=== PATIENT | male | born 1935 | race Caucasian/White ===

== ENCOUNTER 2017-12-22 19:18 | Inpatient (IN) | payer MEDICARE, OTHER ==
--- NOTE | ~2017-12-22 | HEMODYNAMI ---
PATIENT:JAKE WELLS MEDICAL RECORD: [id number] : 33 [id number] ADMISSION DATE: 12/22/17 Generatedon:12/27/20178:04 Patient name: JAKE WELLS Patient #: [id number] SSN: : 1935 Date of study: 12/27/2017 Page: Of Hemodynamic Procedure Report Patient Data Patient Demographics Procedure consent was obtained First Name: JAKE Gender: Male Last Name: RUSSELL : 1935 Patient #: [id number] Age: 82 year(s) Race: Unknown Additional ID: [id number] Contact details [address]: [address] [place] [address] [address] State: [place] City: [place] Zip code: [address] Past Medical History Allergies: No known allergies Admission Admission Data Admission Date: 12/22/2017 Admission Time: 20:11 Admit Source: Other Room #: D.2122 Height (in.): 66.93 BSA: 2.03 (m2) Height (cm.): 170 BMI: 31.83 (kg/m2) Weight (lbs.): 202.83 Weight (kg.): 92 Lab Results Lab Result Date: 12/27/2017 Lab Result Time: 0:00 Biochemistry Name Units Result Min Max BUN mg/dl 25 --(----)-* 7 18 Creatinine mg/dl 1.5 --(----)-* 0.6 1.3 CBC Name Units Result Min Max Hemoglobin g/dl 10.7 *-(----)-- 13.5 17.5 Procedure Procedure Types Cath Procedure PCI Procedure Coronary Stent AMI/SVG/TRACK LAMINATING MACHINE TENDER PTCA or Stent SVG-BMS/EMMY Initial Procedure Description Procedure Date Procedure Date: 12/27/2017 Procedure Start Time: 7:42 Procedure End Time: 8:03 Procedure Staff Name Function Angel Arthur MD Performing Physician Tsering Chan RT Monitor Abdoul Woods RT Joshua Beltran RN Nurse Procedure Data Cath Procedure Fluoroscopy Diagnostic fluoroscopy Total fluoroscopy Time: 3 time: 3 min min Diagnostic fluoroscopy Total fluoroscopy dose: 199 dose: 199 mGy mGy Contrast Material Contrast Material Type Amount (ml) Isovue 370 38 Entry Location Entry Primary Successful Side Size Upsize Upsize Entry Closure Succes sful Closure Location (Fr) 1 (Fr) 2 (Fr) Remarks Device Remarks Femoral Right 6 Fr Exoseal artery Short Estimated blood loss: 10 ml Procedure Complications No complications Procedure Medications Medication Administration Route Dosage Oxygen NC 2 l/min Lidocaine 2% added to field 20 Heparin Flush Bag added to field 2 bags (1000units/500ml NS) 0.9% NaCl I.V. 100 ml/hr Versed I.V. 1 mg Fentanyl I.V. 50 mcg Heparin Bolus I.V. 9000 units Plavix P.O. 600 mg Hemodynamics Rest BSA: 2.03 (m2) HGB: 10.7 (g/dl) O2 Consumption: Estimated: 253.25 (ml/min) O2 Co nsumption indexed: Estimated:124.75 (ml/min/m) Heart Rate: 99 (bpm) Snapshots Pre Cath Intra NCS Post Cath Vital Signs Time Heart Resp SPO2 etCO2 NIBP (mmHg) Rhythm Pain Sedation Rate (ipm) (%) (mmHg) Status Level (bpm) 7:32:23 98 22 95 4.5 154/92(126) NSR 0 (11) 10(A) , No pain 7:37:16 94 18 92 2.2 144/80(116) NSR 0 (11) 10(A) , No pain 7:42:09 93 15 94 1.5 132/73(104) NSR 0 (11) 9(A) , No pain 7:46:56 85 15 93 0.7 137/74(107) NSR 0 (11) 9(A) , No pain 7:51:41 86 17 95 0.7 128/64(90) NSR 0 (11) 9(A) , No pain 7:56:26 80 16 93 0.7 128/64(99) NSR 0 (11) 10(A) , No pain 8:01:14 81 13 96 23.3 133/71(111) NSR 0 (11) 9(A) , No pain Medications Time Medication Route Dose Verified Delivered Reason Notes Effectiveness by by 7:36:58 Oxygen NC 2 Angel Buffie used for l/min Jerson Beltran RN procedure 7:37:06 Lidocaine 2% added 20ml Angel Angel for local to vial Jerson Arthur MD anesthetic field 7:37:12 Heparin Flush added 2 Angel Angel used for Bag to bags Jerson Arthur MD procedure (1000units/500ml field NS) 7:37:21 0.9% NaCl I.V. 100 Angel Buffie Per physician ml/hr Jerson Beltran RN 7:38:28 Versed I.V. 1 mg Angel Buffie for sedation Jerson Beltran RN 7:38:33 Fentanyl I.V. 50 Angel Buffie for sedation mcg Jerson Beltran RN 7:46:33 Heparin Bolus I.V. 9000 Angel Buffie for verifie d units Jerson Beltran RN anticoagulation with dr arthur 7:58:11 Plavix P.O. 600 Angel Buffie for mg Jerson Beltran RN antiplatelet therapy Procedure Log Time Note 7:03:38 Patient Height : 66.93 inches 7:03:38 Patient Weight : 202.83 lbs 7:05:58 Signed procedure consent form obtained from patient. 7:05:59 Time tracking: Regular hours (M-F 7:00 - 5:00) 7:06:03 Plan of Care:Hemodynamics will remain stable., Cardiac rhythm will remain stable., Comfort level will be maintained., Respiratory function will remain adequate., Patient/ family verbilizes understanding of procedure., Procedure tolerated without complication., Recovers from procedure without complications.. 7:06:12 H&P Date Dictated: 12/22/2017 Within 30 days and on chart.. 7:06:25 Patient allergic to No known allergies 7:06:59 Lab Result : Creatinine 1.5 mg/dl 7:06:59 Lab Result : BUN 25 mg/dl 7:06:59 Lab Result : Hemoglobin 10.7 g/dl 7:10:00 Tsering Chan RT(R) sent for patient. Start room use. 7:31:13 Patient received from PCU to CCL 1 Alert and oriented. Tansferred to table in Supine position. 7:31:15 Warm blankets applied, and lo hugger turned on for patient comfort. 7:31:15 Correct patient and procedure confirmed by team. 7:31:16 ECG and BP/O2 sat monitors applied to patient. 7:31:17 Vital chart was started 7::22 Baseline sample Acquired. 7::42 Rhythm: sinus rhythm 7::43 Full Disclosure recording started 7::44 Pre-procedure instructions explained to patient. 7::44 Pre-op teaching completed and patient verbalized understanding. 7:31:46 Family in patients room. 7:31:48 Patient NPO since Midnight. 7:31:52 Is the patient allergic to Iodine/contrast media? No. 7:31:54 Is patient on blood thinner?No 7:31:55 Patient diabetic? Yes. 7:31:57 If diabetic: On Metformin? Yes 7:32:17 HAS NOT HAD METFORMIN WHILE IN HOSPITAL 7:32:27 Previous problem with sedation/anesthesia? No ? 7:32:28 Snore? No 7:32:29 Sleep apnea? No 7:32:31 Deviated septum? No 7:32:31 Opens mouth fully? Yes 7:32:33 Sticks out tongue? Yes 7:32:34 Airway obstruction? No ? 7:32:36 Dentures? No ? 7:34:43 Pre procedure: right dorsailis pedis pulse 2+ Normal; easily identifiable; not easily obliterated 7:34:46 Patient pain scale 0/10 ?. 7:34:50 IV patent on arrival in right hand with 0.9% NaCl at O. 7:35:31 Lab results completed and on chart. 7:35:35 Right groin area was prepped with chlora-prep and draped in sterile fashion 7:35:36 Alarms reviewed by R. N. 7:35:37 Sharps counted by scrub and verified by R.N. 7:35:38 --------ALL STOP TIME OUT------ 7:35:38 Final Timeout: patient, procedure, and site verified with staff and physician. All members of the team are in agreement. 7:35:40 Right groin site verified by team. 7:35:43 Physical assessment completed. ASA score P 2 - A patient with mild systemic disease as per Angel Arthur MD. 7:35:46 Sedation plan: IV Moderate Sedation Medication:Versed, Fentanyl 7:35:52 Use device set CATH PACK 7:35:53 ACIST Syringe (57922) opened to sterile field. 7:35:53 ACIST Hand Control (12533) opened to sterile field. 7:35:54 ACIST Manifold (69404) opened to sterile field. 7:35:54 Medline Cath Pack ([id number]) opened to sterile field. 7:35:55 Bag Decanter (2002S) opened to sterile field. 7:35:55 DIAGNOSTIC WIRE .035 260cm J wire (589242) opened to sterile field. 7:36:00 INFLATOR Merit BasixCompak (PF9377) opened to sterile field. 7:36:15 SHEATH Prelude 6Fr 0.035 ([id number]-7B-62-035) opened to sterile field. 7:36:26 Use device set ARTHUR PCI 7:36:28 TUBING High Pressure Extension Tubing (Arthur) ([id number]) opened to sterile field. 7:36:29 INFLATOR Merit BasixCompak (XW7190) opened to sterile field. 7:36:30 BMW 300cm Lockport 2 J wire ([id number]) opened to sterile field. 7:36:32 SHEATH Prelude 6Fr 0.035 (EVO-8T-04-035) opened to sterile field. 7:36:58 Oxygen 2 l/min NC was administered by Ernesto Beltran RN; used for procedure; 7:37:06 Lidocaine 2% 20ml vial added to field was administered by Angel Arthur MD; for local anesthetic; 7:37:12 Heparin Flush Bag (1000units/500ml NS) 2 bags added to field was administered by Angel Arthur MD; used for procedure; 7:37:21 0.9% NaCl 100 ml/hr I.V. was administered by Ernesto Beltran RN; Per physician; 7:38:28 Versed 1 mg I.V. was administered by Ernesto Beltran RN; for sedation; 7:38:33 Fentanyl 50 mcg I.V. was administered by Ernesto Beltran RN; for sedation; 7:42:03 Zero performed for pressure channel P1 7:42:09 Procedure started. 7:42:13 Local anesthetic to right femoral artery with Lidocaine 1% by Angel Arthur MD.INITIAL ACCESS ONLY 7:43:18 A 6 Fr Short sheath was inserted into the Right Femoral artery 7:43:33 GUIDE 6FR AR 2.0 catheter ([id number]) opened to sterile field. 7:44:08 6 Fr AR 2 guide catheter was inserted over the wire 7:46:33 Heparin Bolus 9000 units I.V. was administered by Ernesto Beltran RN; for anticoagulation; verified with dr arthur 7:46:39 BMW 300 wire advanced. 7:47:58 Wire advanced across lesion. 7:50:27 Place stent Inflation Number: 1 A INTEGRITY OTW 3.0 X 26 stent ([id number]) was prepped and advanced across the Aorta Right -> R PDA. The stent was deployed at 12 STEFANY for 0:10 (min:sec). 7:50:58 Stent catheter was removed intact over wire. 7:50:59 Wire removed. 7:50:59 Guide catheter removed. 7:51:03 EXOSEAL 6Fr (EX600) opened to sterile field. 7:51:36 Sheath removed intact; hemostasis achieved with Exoseal to the Right Femoral artery. 7:52:32 Procedure ended.(Physican Out) 7:53:49 Fluoroscopy time 03.00 minutes. 7:53:52 Fluoroscopy dose: 199 mGy 7:53:52 Flurop Dose total: 199 7:55:28 Sharps counted by scrub and verified by R.N. 7:55:32 Post-op/insertion site Right Femoral artery dressed using a 4 x 4 and Tegaderm. 7:55:35 Post right femoral artery:stable, soft, clean and dry 7:55:39 Post procedure: right dorsailis pedis pulse 2+ Normal; easily identifiable; not easily obliterated. 7:55:42 Post-procedure physical assessment completed. ASA score P 2 - A patient with mild systemic disease as per Angel Arthur MD. 7:55:44 Post procedure rhythm: unchanged. 7:55:46 Estimated blood loss: 10 ml 7:55:47 Post procedure instruction explained to patient.Patient verbalizes understanding. 7:55:47 Patient needs reinforcement of post procedure teaching. 7:55:48 Procedure and supply charges have been captured, reviewed, submitted and are correct. 7:55:59 Contrast amount:Isovue 370 38ml. 7:58:11 Plavix 600 mg P.O. was administered by Ernesto Beltran RN; for antiplatelet therapy; 8:02:21 Procedure type changed to Cath procedure, PCI procedure, Coronary Stent, AMI/SVG/TRACK LAMINATING MACHINE TENDER PTCA or Stent, SVG-BMS/EMMY Initial 8:02:37 FEMSTOP Gold ([id number]) opened to sterile field. 8:02:45 Femstop placed over the right femoral artery at 160 mmHg. Hemostasis achieved. 8:03:04 Procedure Complication : No complications 8:03:06 Vital chart was stopped 8:03:06 See physician's report for complete and final results. 8:03:08 Report given to PCU. 8:03:12 Patient transfered to PCU with Bed. 8:03:14 Procedure ended. 8:03:14 Full Disclosure recording stopped 8:03:21 End room use (Document Last) Intervention Summary Intervention Notes Time ActionType Lesion and Equipment Action# Pressure Duration Attributes Used 7:50:27 Place stent Aorta Right INTEGRITY 1 12 00:10 -> R PDA OTW 3.0 X 26 stent ([id number]) Device Usage Item Name Manufacture Quantity Catalog Hospital Part Current M inimal Lot# / Number Charge Number Stock Stock Serial# Code ACIST Syringe Acist 1 99576 799495 966208 832556 2 0 (01662) [employer] ACIST Hand Acist 1 00124 043976 842705 425504 5 Control (52814) [employer] ACIST Manifold Acist 1 20775 788901 654625 506022 5 (76341) [employer] Medline Cath Cardinal 1 [id number] 084355 87906 720804 5 [facility] ([id number]) Bag Decanter Microtek 1 2001S 017883 27568 203786 5 () Medical Inc. DIAGNOSTIC WIRE St Pranay 1 611365 587312 010246 654070 3 0 .035 260cm J wire (681050) INFLATOR Merit Merit 2 BB8904 536343 187525 458457 1 5 OSR [employer] (CC7274) SHEATH Prelude Merit 2 LQA-7W-13-35 969512 8781249 347615 5 6Fr 0.035 Medical (OVG-4M-98-035) TUBING High Merit 1 [id number] 085292 30943 998394 1 0 Pressure Medical Extension Tubing (Arthur) ([id number]) BMW 300cm Rivera 1 [id number] 012398 739058 076527 5 Lockport 2 J Vascular wire ([id number]) GUIDE 6FR AR Medtronic 1 [id number] 915672 36248 211136 1 2.0 catheter ([id number]) INTEGRITY OTW Medtronic 1 [id number] 274842 996961 7 [id number] 3.0 X 26 stent ([id number]) EXOSEAL 6Fr Cardinal 1 EX600 654265 602472 626025 1 0 (EX600) Health FEMSTOP Gold St Pranay 1 [id number] 881399 177309 194747 5 ([id number]) Signature Audit [place] Stage Time Signature Unsigned Intra-Procedure 12/27/2017 Tsering Chan 8:03:57 AM RT(R) Signatures Monitor : Tsering Cahn Signature : RT Date : Time : [address] [address]
--- NOTE | ~2017-12-22 | HEMODYNAMI ---
PATIENT:JAKE WELLS MEDICAL RECORD: [id number] : 33 LOCATION:[facility] [address] [id number] ADMISSION DATE: 12/22/17 Generatedon:12/23/201716:14 Patient name: JAKE WELLS Patient #: [id number] SSN: : 1935 Date of study: 12/23/2017 Page: Of Hemodynamic Procedure Report Patient Data Patient Demographics Procedure consent was obtained First Name: JAKE Gender: Male Last Name: WELLS : 1935 Patient #: [id number] Age: 82 year(s) Race: Unknown Additional ID: [id number] Contact details [address]: [address] [place] [address] [address] State: [place]: [place] Zip code: [address] Admission Admission Data Admission Date: 12/22/2017 Admission Time: 20:11 Admit Source: Other Room #: D.2310 Height (in.): 66.93 BSA: 2.03 (m2) Height (cm.): 170 BMI: 31.83 (kg/m2) Weight (lbs.): 202.83 Weight (kg.): 92 Lab Results Lab Result Date: 12/23/2017 Lab Result Time: 0:00 Biochemistry Name Units Result Min Max BUN mg/dl 41 --(----)-* 7 18 Creatinine mg/dl 2 --(----)-* 0.6 1.3 CBC Name Units Result Min Max Hemoglobin g/dl 8.1 *-(----)-- 13.5 17.5 Procedure Procedure Types Cath Procedure Diagnostic Procedure LHC LHC w/Coronaries w/Grafts Sedation Charges Moderate Sedation up to 15 minutes Procedure Description Procedure Date Procedure Date: 12/23/2017 Procedure Start Time: 15:54 Procedure End Time: 16:13 Procedure Staff Name Function Angel Arthur MD Performing Physician Malathi Staton RT Monitor Ford Dow RT Scrub Ernesto Beltran RN Nurse Procedure Data Cath Procedure Fluoroscopy Diagnostic fluoroscopy Total fluoroscopy Time: 3.2 time: 3.2 min min Diagnostic fluoroscopy Total fluoroscopy dose: 837 dose: 837 mGy mGy Contrast Material Contrast Material Type Amount (ml) Isovue 370 98 Entry Location Entry Primary Successful Side Size Upsize Upsize Entry Closure Succes sful Closure Location (Fr) 1 (Fr) 2 (Fr) Remarks Device Remarks Femoral Right 5 Fr Exoseal artery Estimated blood loss: 10 ml Diagnostic catheters Device Type Used For End Catheter Placement MULTIPACK JL 4.0 5Fr Procedure catheter DIAGNOSTIC IM 5Fr Procedure catheter ([id number]) MULTIPACK Pigtail 5 Fr Procedure catheter Procedure Complications No complications Procedure Medications Medication Administration Route Dosage Oxygen NC 2 l/min Lidocaine 1% added to field 20 Heparin Flush Bag added to field 2 bags (1000units/500ml NS) 0.9% NaCl I.V. 100 ml/hr Versed I.V. 1 mg Fentanyl I.V. 50 mcg Versed I.V. 1 mg Fentanyl I.V. 50 mcg Hemodynamics Rest BSA: 2.03 (m2) O2 Consumption: Estimated: 235.26 (ml/min) O2 Consumption indexed : Estimated:115.89 (ml/min/m) Heart Rate: 76 (bpm) Pressure Samples Time Site Value (mmHg) Purpose Heart Use Rate(bpm) 16:06 LV 119/7,26 Snapshot 76 16:07 AO 115/52(78) Pullback 68 16:07 LV 122/10,33 Pullback 68 Gradients Valve Time Site 1 Site 2 Mean SEP/DFP Peak To Heart Use (mmHg) (sec/min) Peak Rate (mmHg) (bpm) Aortic 16:07 LV AO 9 19 7 68 122/10,33 115/52(78) Calculations Valve P-P Mean Valve Index Valve Source Name Gradient Area Flow (cm2) Aortic 7 9 7 9 Snapshots Pre Cath Intra NCS Post Cath Vital Signs Time Heart Resp SPO2 etCO2 NIBP (mmHg) Rhythm Pain Sedation Rate (ipm) (%) (mmHg) Status Level (bpm) 15:41:29 71 16 95 0 152/83(125) NSR 0 (11) 10(A) , No pain 15:45:53 68 17 96 24.6 144/67(123) NSR 0 (11) 10(A) , No pain 15:50:13 73 16 97 0 137/70(110) NSR 0 (11) 10(A) , No pain 15:54:33 71 15 96 13.4 129/73(106) NSR 0 (11) 10(A) , No pain 15:59:36 69 10 97 20.1 124/70(106) NSR 0 (11) 9(A) , No pain 16:03:50 69 12 96 8.2 124/71(101) NSR 0 (11) 9(A) , No pain 16:08:04 67 11 96 26.9 122/68(96) NSR 0 (11) 10(A) , No pain 16:12:18 70 12 97 28.3 127/69(98) NSR 0 (11) 10(A) , No pain Medications Time Medication Route Dose Verified Delivered Reason Notes Effe ctiveness by by 15:39:51 Oxygen NC 2 Angel Buffie used for l/min Jerson Beltran RN procedure 15:39:58 Lidocaine 1% added 20ml Angel Angel for local to vial Jerson Arthur MD anesthetic field 15:40:05 Heparin Flush added 2 Angel Angel used for Bag to bags Jerson Arthur MD procedure (1000units/500ml field NS) 15:40:15 0.9% NaCl I.V. 100 Angel Buffie Per ml/hr Jerson Beltran RN physician 15:53:43 Versed I.V. 1 mg Angel Buffie for Jerson Beltran RN sedation 15:53:50 Fentanyl I.V. 50 Angel Buffie for [facility] Jerson Beltran RN sedation 16:01:12 Versed I.V. 1 mg Angel Buffie for Jerson Beltran RN sedation 16:01:17 Fentanyl I.V. 50 Angel Buffie for [facility] Jerson Beltran RN sedation Procedure Log Time Note 15:07:52 Informed consent obtained and on chart 15:07:56 Admit Source: Other 15:08:08 Diagnostic Cath status Elective 15:08:09 Time tracking: Regular hours (M-F 7:00 - 5:00) 15:08:12 Plan of Care:Hemodynamics will remain stable., Cardiac rhythm will remain stable., Comfort level will be maintained., Respiratory function will remain adequate., Patient/ family verbilizes understanding of procedure., Procedure tolerated without complication., Recovers from procedure without complications.. 15:11:17 Patient Height : 66.93 inches 15:11:21 Patient Weight : 202.83 lbs 15: Lab Result : Hemoglobin 8.1 g/dl : Lab Result : Creatinine 2 mg/dl : Lab Result : BUN 41 mg/dl 15:26: Patient received from ICU to CCL 2 Alert and oriented. Tansferred to table in Supine position. 15:: Warm blankets applied, and lo hugger turned on for patient comfort. 15:: Correct patient and procedure confirmed by team. 15::28 ECG and BP/O2 sat monitors applied to patient. 15::29 Pre-procedure instructions explained to patient. 15::30 Pre-op teaching completed and patient verbalized understanding. 15::32 Family in waiting room. 15::33 Patient NPO since Midnight. 15:34:14 Is the patient allergic to Iodine/contrast media? No. 15:34:17 Was the patient premedicated? Yes 15:34:19 Is patient on blood thinner?No 15:34:23 Patient diabetic? Yes. 15:34:24 If diabetic: On Metformin? No 15:34:29 Snore? Unknown 15:34:31 Sleep apnea? No 15:34:42 Dentures? No ? 15:34:52 IV patent on arrival in left forearm with 0.9% NaCl at [facility]. 15:35:01 Lab results completed and on chart. 15:35:05 Right groin area was prepped with chlora-prep and draped in sterile fashion 15:35:06 Alarms reviewed by R. N. 15:35:06 Sharps counted by scrub and verified by R.N. 15:35:08 Physician paged 15:39:51 Oxygen 2 l/min NC was administered by Ernesto Beltran RN; used for procedure; 15:39:58 Lidocaine 1% 20ml vial added to field was administered by Angel Arthur MD; for local anesthetic; 15:40:05 Heparin Flush Bag (1000units/500ml NS) 2 bags added to field was administered by Angel Arthur MD; used for procedure; 15:40:15 0.9% NaCl 100 ml/hr I.V. was administered by Buffie Beltran RN; Per physician; 15:40:18 Vital chart was started 15:50:46 Use device set Femoral Dx 15:51:39 SHEATH Prelude 5Fr 0.035 ([id number]) opened to sterile field. 15:51:40 ACIST Syringe (95479) opened to sterile field. 15:51:41 Bag Decanter (2002S) opened to sterile field. 15:51:42 Medline Cath Pack ([id number]) opened to sterile field. 15:51:44 DIAGNOSTIC WIRE .035 260cm J wire (554970) opened to sterile field. 15:51:45 ACIST Hand Control (85500) opened to sterile field. 15:51:46 ACIST Manifold (04187) opened to sterile field. 15:51:47 DIAGNOSTIC Multipack 5Fr catheter set ([id number]) opened to sterile field. 15:51:48 Tegaderm 4 x 4 (1626W) opened to sterile field. 15:51:49 PERCUTANEOUS ENTRY 19GA needle opened to sterile field. 15:52:00 Physician arrived 15:52:01 --------ALL STOP TIME OUT------ 15:52:01 Final Timeout: patient, procedure, and site verified with staff and physician. All members of the team are in agreement. 15:52:04 Right groin site verified by team. 15:52:07 Physical assessment completed. ASA score P 2 - A patient with mild systemic disease as per Angel Arthur MD. 15:52:11 Sedation plan: IV Moderate Sedation Medication:Versed, Fentanyl 15:53:43 Versed 1 mg I.V. was administered by Ernesto Beltran RN; for sedation; 15:53:50 Fentanyl 50 mcg I.V. was administered by Ernesto Beltran RN; for sedation; 15:53:53 Procedure type changed to Cath procedure, Diagnostic procedure, LHC, LHC w/Coronaries w/Grafts, Sedation Charges, Moderate Sedation up to 15 minutes 15:53:55 Zero performed for pressure channel P1 15:54:03 Zero performed for pressure channel P1 15:54:11 Zero performed for pressure channel P1 15:54:20 Procedure started. 15:54:20 Full Disclosure recording started 15:54:55 Local anesthetic to right femoral artery with Lidocaine 2% by Angel Arthur MD.INITIAL ACCESS ONLY 15:55:02 A 5 Fr sheath was inserted into the Right Femoral artery 15:56:16 A MULTIPACK JL 4.0 5Fr catheter was advanced over the wire and used for Procedure. 15:58:48 GUIDE 5FR AR 2.0 catheter ([id number]) opened to sterile field. 15:58:52 RCA angiography performed. 15:59:56 SVG to RCA angiography performed. 16:00:56 SVG to LAD angiography performed. 16:01:12 Versed 1 mg I.V. was administered by Ernesto Beltran RN; for sedation; 16:01:17 Fentanyl 50 mcg I.V. was administered by Ernesto Beltran RN; for sedation; 16:03:47 Catheter removed. 16:03:54 A DIAGNOSTIC IM 5Fr catheter ([id number]) was advanced over the wire and used for Procedure. 16:05:13 RANGEL graft was not used 16:05:15 Catheter removed. 16:05:33 A MULTIPACK Pigtail 5 Fr catheter was advanced over the wire and used for Procedure. 16:06:18 LV angiography performed. 16:06:59 EF : 30 % 16:09:53 EXOSEAL 5Fr (EX500) opened to sterile field. 16:10:04 Catheter removed. 16:10:51 Sheath removed intact; hemostasis achieved with Exoseal to the Right Femoral artery. 16:11:08 Fluoroscopy time 03.20 minutes. 16:11:16 Fluoroscopy dose: 837 mGy 16:11:16 Flurop Dose total: 837 16:11:25 Contrast amount:Isovue 370 98ml. 16:11:26 Sharps counted by scrub and verified by R.N. 16:11:27 Insertion/operative site no bleeding no hematoma. 16:11:32 Post right femoral artery:stable 16:11:40 Post-procedure physical assessment completed. ASA score P 3 - A patient with severe systemic disease as per Angel Arthur MD. 16:11:43 Post procedure rhythm: unchanged. 16:11:48 Estimated blood loss: 10 ml 16:11:50 Post procedure instruction explained to patient.Patient verbalizes understanding. 16:12:55 Procedure and supply charges have been captured, reviewed, submitted and are correct. 16:13:01 Procedure Complication : No complications 16:13:03 Vital chart was stopped 16:13:04 See physician's report for complete and final results. 16:13:07 Report given to ICU. 16:13:12 Patient transfered to ICU with Bed. 16:13:15 Procedure ended. 16:13:15 Full Disclosure recording stopped Device Usage Item Name Manufacture Quantity Catalog Number Hospital Part Current M inimal Lot# / Charge Number Stock Stock Serial# Code SHEATH Prelude Merit 1 [id number] 921975 188899 5 5Fr 0.035 Medical ([id number]) ACIST Syringe Acist 1 28642 063148 564174 854003 2 0 (49694) [employer] Bag Decanter Microtek 1 2001S 052041 96312 953656 5 (2001S) Medical Inc. Medline Cath Cardinal 1 [id number] 130131 00743 466977 5 Pack Health ([id number]) DIAGNOSTIC WIRE St Pranay 1 631172 250418 443893 479057 3 0 .035 260cm J wire (769447) ACIST Hand Acist 1 24916 356602 917515 239755 5 Control (28714) [employer] Inc ACIST Manifold Acist 1 69913 450574 869669 272316 5 (90101) [employer] Inc DIAGNOSTIC Cardinal 1 [id number] 505503 75187 185311 3 0 Multipack 5Fr Health catheter set ([id number]) Tegaderm 4 x 4 3M 1 1626W 221946 027611 084918 5 (1626W) PERCUTANEOUS Cook Medical 1 [id number] 601980 152028 5 ENTRY 19GA needle MULTIPACK JL Cardinal 1 887638 5 4.0 5Fr Health catheter GUIDE 5FR AR Medtronic 1 [id number] 407933 391033 749175 1 2.0 catheter ([id number]) DIAGNOSTIC IM Cardinal 1 [id number] 797902 640741 107909 5 5Fr catheter Health ([id number]) MULTIPACK Cardinal 1 642834 5 Pigtail 5 Fr Health catheter EXOSEAL 5Fr Cardinal 1 EX500 068138 886492 966493 1 0 (EX500) Health Signature Audit [place] Stage Time Signature Unsigned Intra-Procedure 12/23/2017 Malathi Staton 4:14:08 PM RT(R) Signatures Monitor : Malathi Staton Signature : RT Date : Time : [address] [place] [address]
[2017-12-22] MEDS ORDERED: GLUCOPHAGE1000 MG PO (19:25)
[2017-12-22] MEDS ORDERED: LISINOPRIL10 MG PO (19:25)
[2017-12-22] MEDS ORDERED: LANTUS INSULIN10 ML SC (19:25)
[2017-12-22] MEDS ORDERED: NEURONTIN 400400 MG PO (19:27)
[2017-12-22 19:30] VITALS: BP 131/68
[2017-12-22 20:13] LABS: BASOPHILS 0.1 % (0-2); EOSINOPHILS 1.6 % (0-7); HEMATOCRIT 23.7 % (42.0-54.0); IMMATURE GRANULOCYTES 0.1 % (0-5); LYMPHOCYTES 13.1 % (15-50); MCH 29.6 pg (26.0-34.0); MCHC 30.8 g/dL (31.0-37.0); MEAN PLATELET VOLUME 8.8 fL (7.4-10.4); MONOCYTES 10.6 % (2-11); NEUTROPHILS 74.5 % (40-80); PLATELET COUNT 333 10x3/uL (130-400); RBC 2.47 10x6/uL (4.20-6.10); WBC 6.9 10x3/uL (4.8-10.8)
[2017-12-22 20:16] LABS: HEMOGLOBIN 7.3 g/dL (13.5-17.5)
[2017-12-22 20:21] LABS: APTT 26.9 SECONDS (22.8-39.4); INR 1.15 (0.85-1.17); PROTIME 14.3 SECONDS (11.6-15.0)
[2017-12-22 20:22] LABS: D-DIMER-QUANTITATIVE 1.43 ug/mLFEU (0.20-0.54)
[2017-12-22 20:28] LABS: ALBUMIN 2.9 g/dL (3.4-5.0); ALKALINE PHOSPHATASE 105 U/L (46-116); ALT (SGPT) 53 U/L (10-68); CALC OSMOLALITY 292 mosm/kg (275-300); CALCIUM 8.4 mg/dL (8.5-10.1); CARBON DIOXIDE 14.2 mmol/L (21.0-32.0); CHLORIDE - SERUM 115 mmol/L (98-107); CREATININE - SERUM 2.3 mg/dL (0.6-1.3); GLUCOSE 98 mg/dL (74-106); POTASSIUM - SERUM 5.5 mmol/L (3.5-5.1); PROTEIN - SERUM 6.2 g/dL (6.4-8.2); SODIUM 142 mmol/L (136-145); UREA NITROGEN 41 mg/dL (7-18); eGFR NON AFRICAN AMERICAN 29 mL/min (90-120)
[2017-12-22 20:30] VITALS: BP 123/54
[2017-12-22 20:51] LABS: CKMB 38.4 U/L (0.0-3.6); CREATINE KINASE 286 UL (21-232); MAGNESIUM - SERUM 2.2 mg/dL (1.8-2.4); PRO BNP 11132 pg/mL (0-450)
[2017-12-22 20:55] LABS: TROPONIN-I 10.171 ng/mL (0.000-0.060)
[2017-12-22 21:57] VITALS: BP 146/109; BMI 31.3
[2017-12-22 23:00] VITALS: BP 121/74
[2017-12-23] VITALS (24 sets, daily range): BP systolic 110–182; BP diastolic 61–96; BMI 31.9
[2017-12-23 03:15] LABS: CKMB 25.1 U/L (0.0-3.6); CREATINE KINASE 211 UL (21-232)
[2017-12-23 03:16] LABS: TROPONIN-I 7.511 ng/mL (0.000-0.060)
[2017-12-23 03:50] LABS: BASOPHILS 0.2 % (0-2); EOSINOPHILS 1.4 % (0-7); HEMATOCRIT 25.8 % (42.0-54.0); HEMOGLOBIN 8.1 g/dL (13.5-17.5); IMMATURE GRANULOCYTES 0.2 % (0-5); LYMPHOCYTES 17.1 % (15-50); MCH 30.1 pg (26.0-34.0); MCHC 31.4 g/dL (31.0-37.0); MCV 95.9 fL (80.0-100.0); MONOCYTES 11.9 % (2-11); NEUTROPHILS 69.2 % (40-80); PLATELET COUNT 320 10x3/uL (130-400); RBC 2.69 10x6/uL (4.20-6.10); WBC 5.7 10x3/uL (4.8-10.8)
[2017-12-23 04:06] LABS: ALBUMIN 2.8 g/dL (3.4-5.0); ANION GAP 18.6 mmol/L (8-16); BILIRUBIN - TOTAL 0.2 mg/dL (0.2-1.3); CALCIUM 7.7 mg/dL (8.5-10.1); CARBON DIOXIDE 12.9 mmol/L (21.0-32.0); POTASSIUM - SERUM 5.5 mmol/L (3.5-5.1); PROTEIN - SERUM 6.1 g/dL (6.4-8.2)
[2017-12-23 09:09] LABS: CREATINE KINASE 197 UL (21-232)
[2017-12-23 09:10] LABS: TROPONIN-I 7.211 ng/mL (0.000-0.060)
[2017-12-23 16:29] LABS: % SATURATION 14 % (15-55); IRON 49 ug/dl (35-150); TOTAL IRON BIND CAPACITY 344 ug/dl (260-445); UNSAT IRON BIND CAPACITY 295 ug/dl (150-375)
[2017-12-23 17:34] LABS: KETONE - SERUM NEGATIVE (NEGATIVE)
[2017-12-23 18:00] LABS: ALKALINE PHOSPHATASE 100 U/L (46-116); ALT (SGPT) 48 U/L (10-68); CALC OSMOLALITY 293 mosm/kg (275-300); CHLORIDE - SERUM 115 mmol/L (98-107); CREATINE KINASE 154 UL (21-232); CREATININE - SERUM 1.6 mg/dL (0.6-1.3); GLUCOSE 91 mg/dL (74-106); POTASSIUM - SERUM 5.3 mmol/L (3.5-5.1); PROTEIN - SERUM 5.9 g/dL (6.4-8.2); SODIUM 144 mmol/L (136-145); UREA NITROGEN 33 mg/dL (7-18); eGFR NON AFRICAN AMERICAN 44 mL/min (90-120)
[2017-12-23 18:03] LABS: CARBON DIOXIDE 18.7 mmol/L (21.0-32.0)
[2017-12-23 23:33] LABS: APPEARANCE CLEAR (CLEAR); COLOR YELLOW (YELLOW)
[2017-12-23 23:34] LABS: BILIRUBIN NEGATIVE (NEGATIVE); GLUCOSE 50 mg/dL (NEGATIVE); KETONE SMALL mg/dL (NEGATIVE); NITRITE NEGATIVE (NEGATIVE); PROTEIN TRACE mg/dL (NEGATIVE); UROBILINOGEN NORMAL (NORMAL)
[2017-12-23 23:41] LABS: CREATININE - URINE 38.5 mg/dL (30-125); PRO/CRE RATIO URINE 1.1 mg/g; PROTEIN - URINE 41.9 mg/dL (0.0-11.9)
[2017-12-24 05:19] VITALS: BP 136/70
[2017-12-24 06:45] LABS: BASOPHILS 0.3 % (0-2); EOSINOPHILS 1.2 % (0-7); HEMATOCRIT 29.3 % (42.0-54.0); HEMOGLOBIN 9.4 g/dL (13.5-17.5); IMMATURE GRANULOCYTES 0.2 % (0-5); LYMPHOCYTES 14.3 % (15-50); MCH 30.1 pg (26.0-34.0); MCHC 32.1 g/dL (31.0-37.0); MEAN PLATELET VOLUME 9.1 fL (7.4-10.4); MONOCYTES 13.2 % (2-11); NEUTROPHILS 70.8 % (40-80); PLATELET COUNT 309 10x3/uL (130-400); RBC 3.12 10x6/uL (4.20-6.10); WBC 6.1 10x3/uL (4.8-10.8)
[2017-12-24 06:58] LABS: MCV 93.9 fL (80.0-100.0)
[2017-12-24 07:13] LABS: ANION GAP 14.6 mmol/L (8-16); CALCIUM 7.9 mg/dL (8.5-10.1); CREATININE - SERUM 1.4 mg/dL (0.6-1.3); PHOSPHOROUS 3.5 mg/dL (2.5-4.9); POTASSIUM - SERUM 4.6 mmol/L (3.5-5.1); URIC ACID 6.5 mg/dL (2.6-7.2)
[2017-12-24] MEDS ORDERED: IBUPROFEN600 MG PO (07:37)
[2017-12-24] MEDS ORDERED: OMEGA 3 FISH OI1 CAP PO (07:38)
[2017-12-24] MEDS ORDERED: CENTRUM SILVER1 TA1 PO (07:40)
[2017-12-24 08:18] VITALS: BP 178/90
[2017-12-24 08:18] LABS: FOLATE (FOLIC ACID) - SERUM 13.9 ng/mL (>3.0)
[2017-12-24 12:01] VITALS: BP 130/66
[2017-12-24 13:59] VITALS: BMI 31.9
[2017-12-24 15:47] VITALS: BP 157/70
[2017-12-24 20:30] VITALS: BP 145/90
[2017-12-25 00:30] VITALS: BP 151/66
[2017-12-25 04:30] VITALS: BP 165/84
[2017-12-25 05:04] LABS: BASOPHILS 0.2 % (0-2); EOSINOPHILS 1.1 % (0-7); HEMATOCRIT 28.3 % (42.0-54.0); HEMOGLOBIN 8.9 g/dL (13.5-17.5); IMMATURE GRANULOCYTES 0.2 % (0-5); MCH 29.5 pg (26.0-34.0); MCHC 31.4 g/dL (31.0-37.0); MCV 93.7 fL (80.0-100.0); MEAN PLATELET VOLUME 9.2 fL (7.4-10.4); MONOCYTES 14.3 % (2-11); NEUTROPHILS 69.2 % (40-80); PLATELET COUNT 321 10x3/uL (130-400); RBC 3.02 10x6/uL (4.20-6.10); RDW 14.9 % (11.5-14.5); WBC 6.3 10x3/uL (4.8-10.8)
[2017-12-25 05:30] LABS: ANION GAP 13.2 mmol/L (8-16); CALCIUM 7.8 mg/dL (8.5-10.1); CARBON DIOXIDE 23.5 mmol/L (21.0-32.0); CREATININE - SERUM 1.4 mg/dL (0.6-1.3); PHOSPHOROUS 3.4 mg/dL (2.5-4.9)
[2017-12-25 05:39] LABS: POTASSIUM - SERUM 3.7 mmol/L (3.5-5.1)
[2017-12-25 07:49] VITALS: BP 140/63
[2017-12-25 11:50] VITALS: BP 145/94
[2017-12-25 15:56] VITALS: BP 163/80
[2017-12-25 20:30] VITALS: BP 166/71
[2017-12-26 00:30] VITALS: BP 150/81
[2017-12-26 04:30] VITALS: BP 141/75
[2017-12-26 04:43] LABS: BASOPHILS 0.3 % (0-2); EOSINOPHILS 1.1 % (0-7); HEMATOCRIT 30.9 % (42.0-54.0); LYMPHOCYTES 17.8 % (15-50); MCH 30.2 pg (26.0-34.0); MCHC 32.4 g/dL (31.0-37.0); MCV 93.4 fL (80.0-100.0); MONOCYTES 10.3 % (2-11); NEUTROPHILS 70.5 % (40-80); PLATELET COUNT 315 10x3/uL (130-400); RBC 3.31 10x6/uL (4.20-6.10); WBC 6.4 10x3/uL (4.8-10.8)
[2017-12-26 05:22] LABS: ANION GAP 13.7 mmol/L (8-16); CALCIUM 7.6 mg/dL (8.5-10.1); CARBON DIOXIDE 24.2 mmol/L (21.0-32.0); CREATININE - SERUM 1.3 mg/dL (0.6-1.3); PHOSPHOROUS 3.4 mg/dL (2.5-4.9); POTASSIUM - SERUM 3.9 mmol/L (3.5-5.1)
[2017-12-26 07:40] VITALS: BP 135/86
[2017-12-26 11:41] VITALS: BP 148/61
[2017-12-26 15:17] VITALS: BP 167/88
[2017-12-26 17:11] LABS: SPE - A/G RATIO 1.2 (0.7-1.7); SPE - ALBUMIN 3.1 g/dL (2.9-4.4); SPE - ALPHA-1 GLOBULIN 0.2 g/dL (0.0-0.4); SPE - ALPHA-2 GLOBULIN 0.8 g/dL (0.4-1.0); SPE - GAMMA GLOBULIN 0.6 g/dL (0.4-1.8); SPE - M-SPIKE Not Observed g/dL (Not Observed); SPE - TOTAL PROTEIN 5.7 g/dL (6.0-8.5)
[2017-12-26 17:11] LABS: SPE - A/G RATIO 1.2 (0.7-1.7); SPE - ALPHA-1 GLOBULIN 0.2 g/dL (0.0-0.4); SPE - ALPHA-2 GLOBULIN 0.9 g/dL (0.4-1.0); SPE - BETA GLOBULIN 0.8 g/dL (0.7-1.3); SPE - GAMMA GLOBULIN 0.7 g/dL (0.4-1.8); SPE - M-SPIKE Not Observed g/dL (Not Observed); SPE - TOTAL PROTEIN 5.5 g/dL (6.0-8.5)
[2017-12-26 20:00] VITALS: BP 150/71
[2017-12-27 01:43] VITALS: BP 124/67
[2017-12-27 04:49] VITALS: BP 121/97
[2017-12-27 06:04] LABS: BASOPHILS 0.3 % (0-2); EOSINOPHILS 1.5 % (0-7); HEMATOCRIT 33.8 % (42.0-54.0); HEMOGLOBIN 10.7 g/dL (13.5-17.5); IMMATURE GRANULOCYTES 0.1 % (0-5); LYMPHOCYTES 13.1 % (15-50); MCH 29.7 pg (26.0-34.0); MCHC 31.7 g/dL (31.0-37.0); MCV 93.9 fL (80.0-100.0); MEAN PLATELET VOLUME 9.4 fL (7.4-10.4); MONOCYTES 10.7 % (2-11); NEUTROPHILS 74.3 % (40-80); PLATELET COUNT 353 10x3/uL (130-400); RDW 14.7 % (11.5-14.5); WBC 7.2 10x3/uL (4.8-10.8)
[2017-12-27 06:24] LABS: ANION GAP 14.3 mmol/L (8-16); CARBON DIOXIDE 24.8 mmol/L (21.0-32.0); CREATININE - SERUM 1.5 mg/dL (0.6-1.3); PHOSPHOROUS 3.4 mg/dL (2.5-4.9); POTASSIUM - SERUM 4.1 mmol/L (3.5-5.1)
[2017-12-27 15:09] VITALS: BP 136/77
[2017-12-27 20:24] VITALS: BP 155/85
[2017-12-28 01:38] VITALS: BP 143/83
[2017-12-28 04:54] VITALS: BP 132/71
[2017-12-28 06:19] LABS: BASOPHILS 0.3 % (0-2); EOSINOPHILS 1.5 % (0-7); HEMATOCRIT 30.7 % (42.0-54.0); HEMOGLOBIN 9.7 g/dL (13.5-17.5); IMMATURE GRANULOCYTES 0.2 % (0-5); LYMPHOCYTES 16.5 % (15-50); MCH 29.5 pg (26.0-34.0); MCHC 31.6 g/dL (31.0-37.0); MCV 93.3 fL (80.0-100.0); MEAN PLATELET VOLUME 9.1 fL (7.4-10.4); MONOCYTES 10.1 % (2-11); NEUTROPHILS 71.4 % (40-80); PLATELET COUNT 297 10x3/uL (130-400); RBC 3.29 10x6/uL (4.20-6.10); RDW 14.3 % (11.5-14.5); WBC 6.7 10x3/uL (4.8-10.8)
[2017-12-28 07:22] LABS: ANION GAP 12.7 mmol/L (8-16); CARBON DIOXIDE 24.2 mmol/L (21.0-32.0); CREATININE - SERUM 1.3 mg/dL (0.6-1.3); PHOSPHOROUS 3.1 mg/dL (2.5-4.9); POTASSIUM - SERUM 3.9 mmol/L (3.5-5.1)
[2017-12-28 08:44] VITALS: BP 164/96
[2017-12-28 12:15] VITALS: BP 118/73
[2017-12-28] MEDS ORDERED: PLAVIX75 MG PO (12:53)
[2017-12-28] MEDS ORDERED: PROTONIX40 MG PO (12:54)
[2017-12-28] MEDS ORDERED: CARAFATE1 G/10 ML PO (12:54)
== END 2017-12-28 17:51 | disposition home or self-care (01) | DRG 248 ==
LOC: D.ER 19:18 → D.ICU 20:11 → D.EDHOLD 20:11 → D.M2 20:11 → D.ICU 20:48 → D.M2 12-23 23:00
PROVIDERS: Emergency Medicine; Family Medicine; Internal Medicine Cardiovascular Disease; Internal Medicine Nephrology; Legal Medicine
PROC: B2151ZZ Fluoroscopy of Left Heart using Low Osmolar Contrast (ICD-10-PCS; 2017-12-23)
PROC: 4A023N7 Measurement of Cardiac Sampling and Pressure, Left Heart, Percutaneous Approach (ICD-10-PCS; 2017-12-23)
PROC: B2121ZZ Fluoroscopy of Single Coronary Artery Bypass Graft using Low Osmolar Contrast (ICD-10-PCS; principal; 2017-12-23 13:30)
PROC: 02703DZ Dilation of Coronary Artery, One Artery with Intraluminal Device, Percutaneous Approach (ICD-10-PCS; 2017-12-27)
DX: I97.190 Other postprocedural cardiac functional disturbances following cardiac surgery (principal); I21.A9 Other myocardial infarction type; N17.9 Acute kidney failure, unspecified; E87.2 Acidosis; T82.218A Other mechanical complication of coronary artery bypass graft, initial encounter; E11.22 Type 2 diabetes mellitus with diabetic chronic kidney disease; I12.9 Hypertensive chronic kidney disease with stage 1 through stage 4 chronic kidney disease, or unspecified chronic kidney disease; N18.9 Chronic kidney disease, unspecified; K21.9 Gastro-esophageal reflux disease without esophagitis; D64.9 Anemia, unspecified; I25.10 Atherosclerotic heart disease of native coronary artery without angina pectoris; E87.5 Hyperkalemia; Z79.4 Long term (current) use of insulin

== ENCOUNTER 2018-02-01 10:31 | Outpatient (CLI) | payer MEDICARE, OTHER ==
[~2018-02-01] VITALS: Ht 170.2 cm; Wt 90.9 kg
--- NOTE | ~2018-02-01 | OP ---
PATIENT NAME: JAKE WELLS MEDICAL RECORD: [id number] :33 LOCATION:D.[facility] ADMISSION DATE: SURGEON: BRIANNA WISEMAN MD DATE OF OPERATION: 02/01/2018 PROCEDURE: PTCA stenting report to ramus intermedius branch. DESCRIPTION OF PROCEDURE: After a 6-Yoruba sheath was placed to the right femoral artery. An XB LAD 3.5 guiding catheter provided good catheter support, we were able to transversive this severely 80% stenosed diffuse ramus down the distal portion of this vessel. Next, a 3.0 x 15 mm Gibson balloon was placed at this portion of vessel using the balloon as an exchange catheter. We then placed a PT extra support wire and performed inflations up and down to the ramus up to 12 atmospheres for approximately 30 seconds each inflation. Next, we attempted to place a 3.0 stent; however, due to a probable intraluminal calcium we were unable to place this. We then redilated with a 3.5 balloon, again unable to place a 3.0 stent. Therefore, we placed three sequential 2.5; 18 mm, 24 mm and 14 mm, Integrity nondrug eluting stent throughout the course of the ramus intermediate branch. Post-dilatation was performed with a 3.0 x 15 mm balloon up to 14 atmospheres. Final angiography shows excellent resolution of a diffuse 80% stenosis, no significant residual. [place] flow was 3 throughout the procedure. There was nice tacking to the dissection. Sheath was closed with ExoSeal device. Plavix was loaded in the lab. TRANSINT:[id number] Voice Confirmation ID: [id number] DOCUMENT ID: [id number] BRIANNA WISEMAN MD at 1505 CC: [id number] DICTATION DATE: 02/01/18 1418 METAPHYSICS TEACHER: 02/01/18 1604 DEP CLI 02/02/18 [place] [address] [place] [address]
--- NOTE | ~2018-02-01 | HEMODYNAMI ---
PATIENT:JAKE WELLS MEDICAL RECORD: [id number] : 33 LOCATION:[facility] ADMISSION DATE: 02/01/18 Generatedon:02/01/201814:22 Patient name: JAKE WELLS Patient #: [id number] SSN: : [id number] Date of study: 02/01/2018 Page: Of Hemodynamic Procedure Report Patient Data Patient Demographics Procedure consent was obtained First Name: JAKE Gender: Male Last Name: RUSSELL : 1935 [facility] Initial: MARIANA Age: 82 year(s) Patient #: [id number] Race: Unknown Additional ID: [id number] Contact details [address]: [address] [place] [address] [id number] State: [place] City: [place] Zip code: [address] Past Medical History Allergies: No known allergies Admission Admission Data Admission Date: 02/01/2018 Admission Time: 10:31 Lab Results Lab Result Date: 02/01/2018 Lab Result Time: 0:00 Biochemistry Name Units Result Min Max BUN mg/dl 46 --(----)-* 7 18 Creatinine mg/dl 1.8 --(----)-* 0.6 1.3 CBC Name Units Result Min Max Hemoglobin g/dl 10.2 *-(----)-- 13.5 17.5 Procedure Procedure Types Cath Procedure Diagnostic Procedure Sedation Charges Moderate Sedation up to 45 minutes PCI Procedure Coronary Stent Coronary Stent Initial Procedure Description Procedure Date Procedure Date: 02/01/2018 Procedure Start Time: 13:07 Procedure End Time: 14:19 Procedure Staff Name Function Dion Lorenz MD Performing Physician Tsering Chan RT Monitor Malathi Staton RT Scrub Durga Conway RN Nurse Procedure Data Cath Procedure Fluoroscopy Diagnostic fluoroscopy Total fluoroscopy Time: time: 29.8 min 29.8 min Diagnostic fluoroscopy Total fluoroscopy dose: dose: 2930 mGy 2930 mGy Contrast Material Contrast Material Type Amount (ml) Isovue 370 108 Entry Location Entry Primary Successful Side Size Upsize Upsize Entry Closure Succes sful Closure Location (Fr) 1 (Fr) 2 (Fr) Remarks Device Remarks Femoral Right 6 Fr Exoseal artery Short Estimated blood loss: 10 ml Procedure Complications No complications Procedure Medications Medication Administration Route Dosage 0.9% NaCl I.V. 100 ml/hr Oxygen etCO2 Nasal cannula 2 l/min Heparin Flush Bag added to field 2 bags (1000units/500ml NS) Lidocaine 2% added to field 20 Versed I.V. 1 mg Fentanyl I.V. 50 mcg Fentanyl I.V. 25 mcg Versed I.V. 0.5 mg Heparin Bolus I.V. 5000 units Integrilin (Bolus I.V. 8.5 ml 2mg/ml) Integrilin (Bolus wasted 1.5 ml 2mg/ml) Heparin Bolus I.V. 3000 units Versed I.V. 0.5 mg Fentanyl I.V. 25 mcg Plavix P.O. 600 mg Hemodynamics Rest HGB: 10.2 (g/dl) Heart Rate: 76 (bpm) Snapshots Pre Cath Intra NCS Post Cath Vital Signs Time Heart Resp SPO2 etCO2 NIBP (mmHg) Rhythm Pain Sedation Rate (ipm) (%) (mmHg) Status Level (bpm) 12:50:23 78 16 99 0 155/77(111) NSR 0 (11) 10(A) , No pain 12:55:10 75 19 100 24 149/81(117) NSR 0 (11) 10(A) , No pain 12:59:57 71 14 98 0 123/62(89) NSR 0 (11) 10(A) , No pain 13:04:42 70 16 98 27 127/60(90) NSR 0 (11) 10(A) , No pain 13:09:24 70 14 98 25.5 128/66(93) NSR 0 (11) 10(A) , No pain 13:14:07 70 14 98 0 117/54(81) NSR 0 (11) 9(A) , No pain 13:18:51 72 15 98 26.2 128/58(99) NSR 0 (11) 9(A) , No pain 13:23:36 71 16 99 0 132/67(94) NSR 0 (11) 9(A) , No pain 13:28:19 72 13 97 0 128/70(96) NSR 0 (11) 9(A) , No pain 13:33:04 73 13 97 0 133/62(100) NSR 0 (11) 9(A) , No pain 13:37:50 72 24 99 32.3 134/64(86) NSR 0 (11) 9(A) , No pain 13:42:35 71 22 98 28.5 135/70(95) NSR 0 (11) 9(A) , No pain 13:47:24 79 28 98 29.2 131/57(105) NSR 0 (11) 9(A) , No pain 13:52:48 76 25 99 30 144/70(108) NSR 0 (11) 10(A) , No pain 13:57:34 76 22 99 27 152/80(118) NSR 0 (11) 10(A) , No pain 14:02:23 78 14 99 28.5 169/87(132) NSR 0 (11) 10(A) , No pain 14:07:14 78 20 99 31.5 170/83(141) NSR 0 (11) 9(A) , No pain 14:12:01 79 31 96 24.7 150/86(114) NSR 0 (11) 9(A) , No pain 14:16:49 77 11 28.5 160/88(127) NSR 0 (11) 9(A) , No pain Medications Time Medication Route Dose Verified Delivered Reason Notes Effectiveness by by 12:48:31 0.9% NaCl I.V. 100 Durga Durga Per physician ml/hr Zoraida Conway RN RN 12:48:46 Oxygen etCO2 2 Durga Durga Per physician Nasal l/min Zoraida Conway cannula RN RN 12:49:00 Heparin Flush added 2 Durga Durga used for Bag to bags Zoraida Conway procedure (1000units/500ml field FREDERICK RN NS) 12:49:16 Lidocaine 2% added 20ml Durga Durga for local to vial Zoraida Conway anesthetic field FREDERICK RN 12:57:35 Versed I.V. 1 mg Durga Durga for sedation Zoraida Conway RN RN 12:57:43 Fentanyl I.V. 50 Durga Durga for sedation mcg Zoraida Conway RN RN 13:08:54 Fentanyl I.V. 25 Durga Durga for sedation mcg Zoraida Conway RN RN 13:09:04 Versed I.V. 0.5 Durga Durga for sedation mg Zoraida Conway RN RN 13:13:10 Heparin Bolus I.V. 5000 Durga Durga for units Lormarlene Conway anticoagulation RN RN 13:13:43 Integrilin I.V. 8.5 Durga Durga for (Bolus 2mg/ml) ml Zoraida Conway antiplatelet RN RN therapy 13:13:57 Integrilin wasted 1.5 Durga Durga to sharp's (Bolus 2mg/ml) ml Zoraida Conway RN RN 14:03:09 Heparin Bolus I.V. 3,000 Durga Durga for units Lorigan Zoraida anticoagulation RN RN 14:03:16 Versed I.V. 0.5 Durga Durga for sedation mg Zoraida Conway RN RN 14:03:22 Fentanyl I.V. 25 Durga Durga for sedation mcg Zoraida Conway RN RN 14:14:38 Plavix P.O. 600 Durga Durga for mg Zoraida Conway antiplatelet RN RN therapy Procedure Log Time Note 12:34:09 Durga Conway RN sent for patient. Start room use. 12:34:10 Time tracking: Regular hours (M-F 7:00 - 5:00) 12:34:14 Plan of Care:Hemodynamics will remain stable., Cardiac rhythm will remain stable., Comfort level will be maintained., Respiratory function will remain adequate., Patient/ family verbilizes understanding of procedure., Procedure tolerated without complication., Recovers from procedure without complications.. 12:34:21 Signed procedure consent form obtained from patient. 12:34:28 H&P Date Dictated: 01/26/2018 Within 30 days and on chart., H&P Addendum completed by physician on day of procedure. (MUST COMPLETE FOR ALL OUTPATIENTS). 12:39:53 Patient received from Pre/Post Procedure Room to CCL 1 Alert and oriented. Tansferred to table in Supine position. 12:39:54 Warm blankets applied, and lo hugger turned on for patient comfort. 12:39:54 Correct patient and procedure confirmed by team. 12:39:55 ECG and BP/O2 sat monitors applied to patient. 12:48:31 0.9% NaCl 100 ml/hr I.V. was administered by Durga Conway RN; Per physician; 12:48:46 Oxygen 2 l/min etCO2 Nasal cannula was administered by Durga Conway RN; Per physician; 12:49:00 Heparin Flush Bag (1000units/500ml NS) 2 bags added to field was administered by Durga Conway RN; used for procedure; 12:49:16 Lidocaine 2% 20ml vial added to field was administered by Durga Conway RN; for local anesthetic; 12:49:23 Vital chart was started 12:49:25 Baseline sample Acquired. 12:49:30 Rhythm: sinus rhythm 12:49:31 Full Disclosure recording started 12:49:32 Pre-procedure instructions explained to patient. 12:49:32 Pre-op teaching completed and patient verbalized understanding. 12:49:33 Family in patients room. 12:49:35 Patient NPO since Midnight. 12:49:42 Patient allergic to No known allergies 12:49:44 Is the patient allergic to Iodine/contrast media? No. 12:49:46 Is patient on blood thinner?Yes 12:50:14 PLAVIX HELD 1 WEEK 12:50:16 Patient diabetic? Yes. 12:50:17 If diabetic: On Metformin? Yes 12:50:31 If on Metformin: Last Dose? 01/25/2018 12:50:35 Previous problem with sedation/anesthesia? No ? 12:50:35 Snore? No 12:50:36 Sleep apnea? No 12:50:38 Deviated septum? No 12:50:38 Opens mouth fully? Yes 12:50:39 Sticks out tongue? Yes 12:50:40 Airway obstruction? No ? 12:50:43 Dentures? No ? 12:50:46 Pre procedure: right dorsailis pedis pulse 2+ Normal; easily identifiable; not easily obliterated 12:50:59 IV patent on arrival in left forearm with 0.9% NaCl at [facility]. 12:53:41 Lab Result : BUN 46 mg/dl 12:53:41 Lab Result : Creatinine 1.8 mg/dl 12:53:41 Lab Result : Hemoglobin 10.2 g/dl 12:53:46 Lab results completed and on chart. 12:53:49 Right groin area was prepped with chlora-prep and draped in sterile fashion 12:53:50 Alarms reviewed by R. N. 12:53:50 Sharps counted by scrub and verified by R.N. :55:39 --------ALL STOP TIME OUT------ 12:55:39 Final Timeout: patient, procedure, and site verified with staff and physician. All members of the team are in agreement. 12:55:41 Right groin site verified by team. 12:55:44 Physical assessment completed. ASA score P 2 - A patient with mild systemic disease as per Dion Lorenz MD. 12:55:49 Sedation plan: IV Moderate Sedation Medication:Versed, Fentanyl 12:57:35 Versed 1 mg I.V. was administered by Durga Conway RN; for sedation; 12:57:43 Fentanyl 50 mcg I.V. was administered by Durga Conway RN; for sedation; 12:58:35 Use device set CATH PACK 12:58:36 ACIST Syringe (31823) opened to sterile field. 12:58:37 ACIST Hand Control (53464) opened to sterile field. 12:58:37 ACIST Manifold (74841) opened to sterile field. 12:58:37 Medline Cath Pack ([id number]) opened to sterile field. 12:58:38 Bag Decanter (2002S) opened to sterile field. 12:58:38 DIAGNOSTIC WIRE .035 260cm J wire (399037) opened to sterile field. 12:58:58 SHEATH 6FR [place] (DPC415) opened to sterile field. 12:58:58 INFLATOR Merit BasixCompak (WK8896) opened to sterile field. 12:58:59 WHISPER 300cm guide wire ([id number]) opened to sterile field. 12:59:48 Zero performed for pressure channel P1 13:07:18 Zero performed for pressure channel P1 13:07:24 Zero performed for pressure channel P1 13:07:33 Procedure started. 13:07:36 Local anesthetic to right femoral artery with Lidocaine 2% by Dion Lorenz MD.INITIAL ACCESS ONLY 13:08:47 A 6 Fr Short sheath was inserted into the Right Femoral artery 13:08:54 Fentanyl 25 mcg I.V. was administered by Durga Conway RN; for sedation; 13:09:03 6 Fr XBLAD 3.5 guide catheter was inserted over the wire 13:09:04 Versed 0.5 mg I.V. was administered by Durga Conway RN; for sedation; 13:11:11 WHISPER 300 wire advanced. 13:13:00 CHOICE PT Extra Support J 300cm guide wire ([id number]) opened to sterile field. 13:13:10 Heparin Bolus 5000 units I.V. was administered by Durga Conway RN; for anticoagulation; 13:13:35 WHISPER EXCHANGED FOR CHOICE ES 300 13:13:40 Wire advanced across lesion. 13:13:43 Integrilin (Bolus 2mg/ml) 8.5 ml I.V. was administered by Durga Conway RN; for antiplatelet therapy; 13:13:57 Integrilin (Bolus 2mg/ml) 1.5 ml wasted was administered by Durga Conway RN; to sharp's; 13:14:29 Inflate balloon Inflation number: 1 A EMERGE OTW 3.0 x 15 balloon ([id number]) was prepped and advanced across the Ramus, then inflated to 10 STEFANY for 0:15 (min:sec). 13:14:47 Inflation number: 2 The EMERGE OTW 3.0 x 15 balloon ([id number]) was reinflated across the Ramus, to 10 STEFANY for 0:10 (min:sec). 13:15:24 Inflation number: 3 The EMERGE OTW 3.0 x 15 balloon ([id number]) was reinflated across the Ramus, to 10 STEFANY for 0:10 (min:sec). 13:16:38 Inflation number: 4 The EMERGE OTW 3.0 x 15 balloon ([id number]) was reinflated across the Ramus, to 14 STEFANY for 0:00 (min:sec). 13:17:31 Inflation number: 5 The EMERGE OTW 3.0 x 15 balloon ([id number]) was reinflated across the Ramus, to 12 STEFANY for 0:15 (min:sec). 13:18:33 Inflation number: 6 The EMERGE OTW 3.0 x 15 balloon ([id number]) was reinflated across the Ramus, to 12 STEFANY for 0:10 (min:sec). 13:19:04 Inflation number: 7 The EMERGE OTW 3.0 x 15 balloon ([id number]) was reinflated across the Ramus, to 12 STEFANY for 0:10 (min:sec). 13:19:37 Inflation number: 8 The EMERGE OTW 3.0 x 15 balloon ([id number]) was reinflated across the Ramus, to 12 STEFANY for 0:10 (min:sec). 13:20:39 Inflation number: 9 The EMERGE OTW 3.0 x 15 balloon ([id number]) was reinflated across the Ramus, to 14 STEFANY for 0:10 (min:sec). 13:21:13 Inflation number: 10 The EMERGE OTW 3.0 x 15 balloon ([id number]) was reinflated across the Ramus, to 14 STEFANY for 0:10 (min:sec). 13:21:47 Balloon removed over the wire. 13:27:19 The INTEGRITY OTW 3.0 X 22 stent ([id number]) was advanced then removed because of failure to cross lesion 13:29:39 Inflate balloon Inflation number: 11 A EUPHORA 3.0 x 20 Balloon ([id number]) was prepped and advanced across the Ramus, then inflated to 14 STEFANY for 0:10 (min:sec). 13:29:52 Balloon removed over the wire. 13:33:11 WHISPER 300 ADVANCED BULMARO WIRE 13:36:25 The INTEGRITY OTW 3.0 X 22 stent ([id number]) was advanced then removed because of failure to cross lesion 13:36:42 BULMARO WIRE REMOVED 13:42:35 The INTEGRITY OTW 3.0 X 9 stent ([id number]) was advanced then removed because of failure to cross lesion 13:45:33 Inflate balloon Inflation number: 12 A EMERGE OTW 3.5 x 12 balloon ([id number]) was prepped and advanced across the Ramus, then inflated to 10 STEFANY for 0:25 (min:sec). 13:46:19 Inflation number: 13 The EMERGE OTW 3.5 x 12 balloon ([id number]) was reinflated across the Ramus, to 10 STEFANY for 0:25 (min:sec). 13:47:13 Inflation number: 14 The EMERGE OTW 3.5 x 12 balloon ([id number]) was reinflated across the Ramus, to 10 STEFANY for 0:25 (min:sec). 13:47:50 Inflation number: 15 The EMERGE OTW 3.5 x 12 balloon ([id number]) was reinflated across the Ramus, to 10 STEFANY for 0:15 (min:sec). 13:48:26 Inflation number: 16 The EMERGE OTW 3.5 x 12 balloon ([id number]) was reinflated across the Ramus, to 14 STEFANY for 0:25 (min:sec). 13:50:24 Balloon removed over the wire. 13:52:56 The INTEGRITY OTW 3.0 X 9 stent ([id number]) was advanced then removed because of failure to cross lesion 13:55:57 Place stent Inflation Number: 17 A INTEGRITY OTW 2.5 X 18 stent ([id number]) was prepped and advanced across the Ramus. The stent was deployed at 16 STEFANY for 0:10 (min:sec). 13:59:39 Place stent Inflation Number: 18 A INTEGRITY OTW 2.5 X 22 stent ([id number]) was prepped and advanced across the Ramus. The stent was deployed at 16 STEFANY for 0:15 (min:sec). 14:03:09 Heparin Bolus 3,000 units I.V. was administered by Durga Conway RN; for anticoagulation; 14:03:16 Versed 0.5 mg I.V. was administered by Durga Conway RN; for sedation; 14:03:22 Fentanyl 25 mcg I.V. was administered by Durga Conway RN; for sedation; 14:04:48 Place stent Inflation Number: 19 A INTEGRITY OTW 2.25 X 14 stent ([id number]) was prepped and advanced across the Ramus. The stent was deployed at 16 STEFANY for 0:10 (min:sec). 14:05:18 Stent catheter was removed intact over wire. 14:08:21 Inflate balloon Inflation number: 20 A EUPHORA 3.0 x 20 Balloon ([id number]) was prepped and advanced across the Ramus, then inflated to 12 STEFANY for 0:15 (min:sec). 14:08:37 Inflation number: 21 The EUPHORA 3.0 x 20 Balloon ([id number]) was reinflated across the Ramus, to 12 STEFANY for 0:15 (min:sec). 14:09:02 Inflation number: 22 The EUPHORA 3.0 x 20 Balloon ([id number]) was reinflated across the Ramus, to 12 STEFANY for 0:15 (min:sec). 14:09:23 Balloon removed over the wire. 14:10:02 Wire removed. 14:10:03 Guide catheter removed. 14:10:10 EXOSEAL 6Fr (EX600) opened to sterile field. 14:10:23 Sheath removed intact; hemostasis achieved with Exoseal to the Right Femoral artery. 14:10:26 Procedure ended.(Physican Out) 14:11:28 Fluoroscopy time 29.80 minutes. 14::33 Flurop Dose total: 2930 14:11:33 Fluoroscopy dose: 2930 mGy 14:11:37 Contrast amount:Isovue 370 108ml. 14:11:38 Sharps counted by scrub and verified by R.N. 14:11:41 Post-op/insertion site Right Femoral artery dressed using a 4 x 4 and Tegaderm. 14:11:45 Post right femoral artery:stable, soft, clean and dry 14:13:27 Post-procedure physical assessment completed. ASA score P 2 - A patient with mild systemic disease as per Dion Lorenz MD. 14:13:30 Post procedure rhythm: sinus rhythm 14:13:31 Estimated blood loss: 10 ml 14:13:33 Post procedure instruction explained to patient.Patient verbalizes understanding. 14:13:33 Patient needs reinforcement of post procedure teaching. 14:13:59 Procedure type changed to Cath procedure, Diagnostic procedure, Sedation Charges, Moderate Sedation up to 45 minutes, PCI procedure, Coronary Stent, Coronary Stent Initial 14:14:34 Procedure and supply charges have been captured, reviewed, submitted and are correct. 14:14:38 Plavix 600 mg P.O. was administered by Durga Conway RN; for antiplatelet therapy; 14:18:39 FEMSTOP Gold ([id number]) opened to sterile field. 14:18:47 Femstop placed over the right femoral artery at 180 mmHg. Hemostasis achieved. 14:19:12 Procedure Complication : No complications 14:19:16 Vital chart was stopped 14:19:17 See physician's report for complete and final results. 14:19:18 Report given to PCU. 14:19:21 Patient transfered to PCU with Bed. 14:19:22 Procedure ended. 14:19:22 Full Disclosure recording stopped 14::26 End room use (Document Last) Intervention Summary Intervention Notes Time ActionType Lesion and Equipment Action# Pressure Duration Attributes Used 13:14:29 Inflate Ramus EMERGE OTW 1 10 00:15 balloon 3.0 x 15 balloon ([id number]) 13:14:47 Reinflate Ramus EMERGE OTW 2 10 00:10 balloon 3.0 x 15 balloon ([id number]) 13:15:24 Reinflate Ramus EMERGE OTW 3 10 00:10 balloon 3.0 x 15 balloon ([id number]) 13:16:38 Reinflate Ramus EMERGE OTW 4 14 00:00 balloon 3.0 x 15 balloon ([id number]) 13:17:31 Reinflate Ramus EMERGE OTW 5 12 00:15 balloon 3.0 x 15 balloon ([id number]) 13:18:33 Reinflate Ramus EMERGE OTW 6 12 00:10 balloon 3.0 x 15 balloon ([id number]) 13:19:04 Reinflate Ramus EMERGE OTW 7 12 00:10 balloon 3.0 x 15 balloon ([id number]) 13:19:37 Reinflate Ramus EMERGE OTW 8 12 00:10 balloon 3.0 x 15 balloon ([id number]) 13:20:39 Reinflate Ramus EMERGE OTW 9 14 00:10 balloon 3.0 x 15 balloon ([id number]) 13:21:13 Reinflate Ramus EMERGE OTW 10 14 00:10 balloon 3.0 x 15 balloon ([id number]) 13:27:19 Discard INTEGRITY Stent OTW 3.0 X 22 stent ([id number]) 13:29:39 Inflate Ramus EUPHORA 3.0 11 14 00:10 balloon x 20 Balloon ([id number]) 13:36:25 Discard INTEGRITY Stent OTW 3.0 X 22 stent ([id number]) 13:42:35 Discard INTEGRITY Stent OTW 3.0 X 9 stent ([id number]) 13:45:33 Inflate Ramus EMERGE OTW 12 10 00:25 balloon 3.5 x 12 balloon ([id number]) 13:46:19 Reinflate Ramus EMERGE OTW 13 10 00:25 balloon 3.5 x 12 balloon ([id number]) 13:47:13 Reinflate Ramus EMERGE OTW 14 10 00:25 balloon 3.5 x 12 balloon ([id number]) 13:47:50 Reinflate Ramus EMERGE OTW 15 10 00:15 balloon 3.5 x 12 balloon ([id number]) 13:48:26 Reinflate Ramus EMERGE OTW 16 14 00:25 balloon 3.5 x 12 balloon ([id number]) 13:52:56 Discard INTEGRITY Stent OTW 3.0 X 9 stent ([id number]) 13:55:57 Place stent Ramus INTEGRITY 17 16 00:10 OTW 2.5 X 18 stent ([id number]) 13:59:39 Place stent Ramus INTEGRITY 18 16 00:15 OTW 2.5 X 22 stent ([id number]) 14:04:48 Place stent Ramus INTEGRITY 19 16 00:10 OTW 2.25 X 14 stent ([id number]) 14:08:21 Inflate Ramus EUPHORA 3.0 20 12 00:15 balloon x 20 Balloon ([id number]) 14:08:37 Reinflate Ramus EUPHORA 3.0 21 12 00:15 balloon x 20 Balloon ([id number]) 14:09:02 Reinflate Ramus EUPHORA 3.0 22 12 00:15 balloon x 20 Balloon ([id number]) Device Usage Item Name Manufacture Quantity Catalog Number Hospital Part Current Min imal Lot# / Charge Number Stock Stock Serial# Code ACIST Acist 1 81314 100960 097998 123517 20 Syringe Medical (91862) Systems Inc ACIST Hand Acist 1 40644 849520 761208 985941 5 Control Medical (26370) Systems Inc ACIST Acist 1 55596 490152 805656 293451 5 Manifold Medical (59013) Systems Inc Medline Cath Cardinal 1 [id number] 740864 64911 749932 5 Pack Health ([id number]) Bag Decanter Microtek 1 647800 77804 394087 5 () Medical Inc. DIAGNOSTIC St Pranay 1 984512 419722 304879 285247 30 WIRE .035 260cm J wire (179381) SHEATH 6FR Terumo 1 OPD693 523202 017402 150431 40 [place] (SLZ898) INFLATOR Merit 1 KM7830 423619 753589 543016 15 [facility] BasixCompak (CD3950) WHISPER [place] 1 [id number] 449155 800572 033785 5 300cm guide Vascular wire ([id number]) CHOICE PT [place] 1 [id number] 140647 748067 984048 5 [id number] Extra Scientific Support J 300cm guide wire (6545540X6) EMERGE OTW [place] 1 [id number] 407423 041834 632338 5 [id number] 3.0 x 15 Scientific balloon ([id number]) INTEGRITY Medtronic 1 [id number] 162889 506231 5 [id number] OTW 3.0 X 22 stent ([id number]) EUPHORA 3.0 Medtronic 2 [id number] 356889 669072 639665 5 [id number] x 20 Balloon [id number] ([id number]) INTEGRITY Medtronic 1 [id number] 102544 537196 5 [id number] OTW 3.0 X 9 stent ([id number]) EMERGE OTW [place] 1 [id number] 937503 863622 800018 5 [id number] 3.5 x 12 Scientific balloon ([id number]) INTEGRITY Medtronic 1 [id number] 108500 485423 0 [id number] OTW 2.5 X 18 stent ([id number]) INTEGRITY Medtronic 1 [id number] 952823 968189 1 [id number] OTW 2.5 X 22 stent ([id number]) INTEGRITY Medtronic 1 [id number] 888733 628799 7 [id number] OTW 2.25 X 14 stent ([id number]) EXOSEAL 6Fr Cardinal 1 EX600 198778 658641 691418 10 (EX600) Health FEMSTOP Gold St Pranay 1 [id number] 698942 418832 432681 5 ([id number]) Signature Audit [place] Stage Time Signature Unsigned Intra-Procedure 02/01/2018 Tsering Chan 2:22:11 PM RT(R) Signatures Monitor : Tsering Chan Signature : RT Date : Time : [facility] [address] [place] [address]
[~2018-02-01 10:31] MED LIST: CARAFATE1 G/10 ML PO; CENTRUM SILVER1 TA1 PO; GLUCOPHAGE1000 MG PO; IBUPROFEN600 MG PO; LANTUS INSULIN10 ML SC; LISINOPRIL10 MG PO; NEURONTIN 400400 MG PO; OMEGA 3 FISH OI1 CAP PO; PLAVIX75 MG PO; PROTONIX40 MG PO
[2018-02-01] MEDS ORDERED: CHLORTHALIDONE25 MG (10:55)
[2018-02-01] MEDS ORDERED: MELATONIN5 MG (10:57)
[2018-02-01] MEDS ORDERED: VITAMIN D3400 UNI1 (11:00)
[2018-02-01] MEDS ORDERED: HYDROCHLOROTH12.5 M1 PO (11:00)
[2018-02-01 11:09] VITALS: BP 138/61; BMI 31.4
[2018-02-01 11:33] LABS: BASOPHILS 0.5 % (0-2); EOSINOPHILS 3.2 % (0-7); HEMATOCRIT 32.1 % (42.0-54.0); HEMOGLOBIN 10.2 g/dL (13.5-17.5); IMMATURE GRANULOCYTES 0.2 % (0-5); LYMPHOCYTES 19.8 % (15-50); MCH 29.7 pg (26.0-34.0); MCHC 31.8 g/dL (31.0-37.0); MCV 93.3 fL (80.0-100.0); MEAN PLATELET VOLUME 9.6 fL (7.4-10.4); MONOCYTES 12.3 % (2-11); PLATELET COUNT 231 10x3/uL (130-400); RBC 3.44 10x6/uL (4.20-6.10); RDW 15.9 % (11.5-14.5); WBC 4.4 10x3/uL (4.8-10.8)
[2018-02-01 11:47] LABS: ANION GAP 16.2 mmol/L (8-16); CALCIUM 7.7 mg/dL (8.5-10.1); CARBON DIOXIDE 18.3 mmol/L (21.0-32.0); CREATININE - SERUM 1.8 mg/dL (0.6-1.3); POTASSIUM - SERUM 5.5 mmol/L (3.5-5.1)
[2018-02-01 14:58] VITALS: BP 156/84; Ht 170.2 cm; Wt 90.9 kg
[2018-02-01 15:56] VITALS: BP 147/73
[2018-02-01 21:52] VITALS: BP 131/74
[2018-02-02 01:17] VITALS: BP 133/68
[2018-02-02 04:00] VITALS: BP 126/58
[2018-02-02 08:22] VITALS: BP 147/63
[2018-02-02] MEDS ORDERED: PLAVIX75 MG PO (10:09)
[2018-02-02 11:34] VITALS: BP 139/65
== END 2018-02-02 12:51 | disposition home or self-care (01) ==
LOC: D.CATH 10:31 → D.M2 14:24 → D.CATH 02-02 12:51
PROVIDERS: Internal Medicine Interventional Cardiology
DX: I25.119 Atherosclerotic heart disease of native coronary artery with unspecified angina pectoris (principal); Z01.812 Encounter for preprocedural laboratory examination

== ENCOUNTER 2018-08-05 00:19 | Inpatient (IN) | payer MEDICARE, OTHER ==
[~2018-08-05] VITALS: Ht 167.6 cm; Wt 88.2 kg
[2018-08-05] VITALS (19 sets, daily range): BP systolic 121–140; BP diastolic 58–76; Ht 167.6 cm; Wt 88.2 kg
[~2018-08-05 00:19] MED LIST changes: +CHLORTHALIDONE25 MG; +HYDROCHLOROTH12.5 M1 PO; +MELATONIN5 MG; +VITAMIN D3400 UNI1
[2018-08-05 01:07] LABS: BASOPHILS 0.3 % (0-2); EOSINOPHILS 1.2 % (0-7); HEMATOCRIT 33.3 % (42.0-54.0); HEMOGLOBIN 10.4 g/dL (13.5-17.5); IMMATURE GRANULOCYTES 0.2 % (0-5); LYMPHOCYTES 11.1 % (15-50); MCH 31.3 pg (26.0-34.0); MCHC 31.2 g/dL (31.0-37.0); MCV 100.3 fL (80.0-100.0); MEAN PLATELET VOLUME 9.7 fL (7.4-10.4); MONOCYTES 10.6 % (2-11); NEUTROPHILS 76.6 % (40-80); PLATELET COUNT 213 10x3/uL (130-400); RBC 3.32 10x6/uL (4.20-6.10); RDW 16.4 % (11.5-14.5); WBC 6.4 10x3/uL (4.8-10.8)
--- NOTE | 2018-08-05 01:20 | NUR ---
PT GIVEN A SANDWICH TRAY AND DRINK. DENIES ANY FUTHER NEEDS AT PRESENT.
[2018-08-05 01:49] LABS: ALBUMIN 3.6 g/dL (3.4-5.0); BILIRUBIN - TOTAL 0.31 mg/dL (0.2-1.3); CALCIUM 8.1 mg/dL (8.5-10.1); CARBON DIOXIDE 14.2 mmol/L (21.0-32.0); CREATININE - SERUM 3.1 mg/dL (0.6-1.3); PROTEIN - SERUM 7.3 g/dL (6.4-8.2)
[2018-08-05 01:53] LABS: ANION GAP 19.4 mmol/L (8-16); POTASSIUM - SERUM 7.6 mmol/L (3.5-5.1)
[2018-08-05 01:54] LABS: TROPONIN-I 0.238 ng/mL (0.000-0.060)
--- NOTE | 2018-08-05 03:05 | NUR ---
PT RESFUSED MUNOZ AT THIS TIME. UP TO BEDSIDE WITH ASSISTANCE. PT VOIDED 300ML URINE
--- NOTE | 2018-08-05 05:20 | NUR ---
RECEIVED PT FROM ER VIA STRETCHER. PT ATTACHED TO MONITORS. ADMISSION ASSESSMENT, HISTORY COMPLETED, SEE FLOWSHEET. NO OTHER NEEDS NOTED. WILL CONTINUE TO MONITOR.
[2018-08-05] MEDS ORDERED: CARAFATE1 G PO (05:32)
[2018-08-05 06:54] LABS: BASOPHILS 0.1 % (0-2); EOSINOPHILS 1.2 % (0-7); HEMATOCRIT 32.1 % (42.0-54.0); HEMOGLOBIN 10.1 g/dL (13.5-17.5); IMMATURE GRANULOCYTES 0.3 % (0-5); LYMPHOCYTES 4.8 % (15-50); MCH 31.2 pg (26.0-34.0); MCHC 31.5 g/dL (31.0-37.0); MCV 99.1 fL (80.0-100.0); MEAN PLATELET VOLUME 9.6 fL (7.4-10.4); MONOCYTES 9.3 % (2-11); NEUTROPHILS 84.3 % (40-80); PLATELET COUNT 217 10x3/uL (130-400); RBC 3.24 10x6/uL (4.20-6.10); RDW 16.5 % (11.5-14.5); WBC 7.6 10x3/uL (4.8-10.8)
[2018-08-05 07:10] LABS: ALBUMIN 3.3 g/dL (3.4-5.0); ANION GAP 21.1 mmol/L (8-16); BILIRUBIN - TOTAL 0.37 mg/dL (0.2-1.3); CALCIUM 7.8 mg/dL (8.5-10.1); CARBON DIOXIDE 14.6 mmol/L (21.0-32.0); CREATININE - SERUM 3.1 mg/dL (0.6-1.3); PROTEIN - SERUM 6.9 g/dL (6.4-8.2)
[2018-08-05 07:12] LABS: POTASSIUM - SERUM 6.7 mmol/L (3.5-5.1)
--- NOTE | 2018-08-05 07:40 | NUR ---
SPOKE WITH RONN PALUMBO FOR RENAL ABOUT CRITICAL K OF 6.7. CAR CONSTRUCTION SUPERINTENDENT WILL ADDRESS AND PUT IN NEW ORDERS TO TX. AAOX4. SITTING UP IN BED. CO OF SOB. DENIES CHEST PAIN. NO S/S OF ACUTE DISTRESS. CL IN PLACE.
--- NOTE | 2018-08-05 09:42 | NUR ---
LATE ENTRY 0700. PT SITTING UP IN BED. HOB 45 DEGREES. SOB ON EXERTION. EDUCATED PT TO TRY AND REST. NO S/S OF ACUTE DISTRESS. EMPTIED URINAL. CL IN PLACE.
--- NOTE | 2018-08-05 10:05 | NUR ---
PT RESTING WITH EYES CLOSED. O2 @ 2 LITERS NC. SITED IV TO L WRIST. FLUSHED WELL. NO REDDNESS OR SWELLING NOTED. NO S/S OF ACUTE DISTRESS. CL IN PLACE.
--- NOTE | 2018-08-05 12:17 | NUR ---
PT SITTING UP IN BED EATING LUNCH. NO S/S OF ACUTE DISTRESS. EMPTIED 500ML OF CLEAR YELLOW URINE. NO S/S ACUTE DISTRESS. CL IN PLACE.
--- NOTE | 2018-08-05 14:23 | NUR ---
PT RESTING IN BED. EYES CLOSED. CHEST RISING AND FALLING. NO S/S OF ACUTE DISTRESS. CL IN PLACE. LATE ENTRY FROM 1200. F/C INSERTED PER MD ORDERS PERFORMED BY STERILE TECHNIQUE. 350 ML OF LIGHT YELLOW URINE DRAINED TO BAG BY GRAVITY. CRITICAL K OF 6.4 CALLED TO RONN PALUMBO. TOLD ME TO SPEAK WITH PARAM WHO SHOULD BE IN UNIT SOON. SPOKE WITH PARAM WHO PUT IN NEW ORDERS FOR LASIX THIS AFTERNOON. C02 BELOW 20 1 AMP BICARB. DO NOT CALL UNLESS PT K IS GREATER THAN 6 ON NEXT REDRAW.
--- NOTE | 2018-08-05 14:35 | HP ---
PATIENT: JAKE CHOA MEDICAL RECORD: [id number] ACCOUNT: [id number] LOCATION:.[facility] D.2310 : 34 ADMISSION DATE: 08/05/18 PCP: MATI CASTRO HISTORY AND PHYSICAL EXAMINATION HISTORY OF PRESENT ILLNESS: Mr. Chao is an 82-year-old white male from [place] that actually was at home yesterday and had a fall. His daughter took him to the Emergency Room, where he was found to be in renal failure. He has severe hyperkalemia and an elevated troponin, pleural effusion. 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 He is not on dialysis at this time. He is transferred to our hospital for a higher level of care. He is currently in the ICU and is being seen by cardiology and nephrology. PAST MEDICAL HISTORY: Significant for known diabetes, coronary artery disease with previous PTCA and CABG, osteoarthritis, neuropathy. PAST SURGICAL HISTORY: Include CABG in 1999 and previous PTCA. ALLERGIES: None known. HOME MEDICATIONS: Include melatonin, vitamin D3, hydrochlorothiazide 12.5 once a day, Lantus 30 units a day, lisinopril 10 mg a day, Carafate 1 gram a.c. and at bedtime, pantoprazole 40 mg b.i.d., gabapentin 400 mg daily, ibuprofen p.r.n., chlorthalidone 40 mg a day, and Plavix 75 mg a day. FAMILY HISTORY: Significant for lung disease and heart disease. SOCIAL HISTORY: The patient does not smoke. He lives in [place] next door to his daughter, who looks in on him. REVIEW OF SYSTEMS: He complains of some chest wall pain, hurts when he takes a deep breath. Denies any abdominal pain. No nausea or vomiting. PHYSICAL EXAMINATION: GENERAL: He is pleasant and alert. HEENT: Head is normocephalic. Sclerae nonicteric. HEART: Currently irregular. LUNGS: With somewhat diminished breath sounds. ABDOMEN: Soft, nontender. NEUROLOGIC: Without any gross focal deficits. IMPRESSION: 1. Fall. 2. Ariep-hg-modqdbr renal disease. 3. Coronary artery disease, status post PTCA with elevation of troponin, insulin-treated diabetes mellitus, hyperkalemia, elevated BNP, anemia probably of chronic disease, metabolic acidosis. PLAN: Admit to ICU. Nephrology and cardiac consults. Cardiac enzymes. IV fluids. Hold nephrotoxic drugs. Monitor renal function and potassium. See orders for rest of the plan. TRANSINT:[id number] Voice Confirmation ID: [id number] DOCUMENT ID: [id number] HISTORY AND PHYSICAL [id number] CHAO,ZAY MOSER DO at 1439 CC: [id number] DICTATION DATE: 08/05/18 1200 CLIMATOLOGY TEACHER: 08/05/18 1322 ADM IN [facility] [address] [place] [address]
--- NOTE | 2018-08-05 14:50 | NUR ---
SPOKE WITH TONY THE DAUGHTER WHO STATED"DAD GOES IN FOR REG TRANSFUSIONS, WILL YOU DO THEM THERE?". DID EXPLAIN THAT WE WOULD IF THE PT LEVEL DROPPED TO A POINT THE MD FELT A TRANSFUSION WOULD BE NECCESSARY.
--- NOTE | 2018-08-05 15:54 | NUR ---
PT RESTING IN BED. ASSISTED WITH SHOWING PT HOW TO WORK TV. NO S/S OF ACUTE DISTRESS. CL IN PLACE.
--- NOTE | 2018-08-05 16:38 | NUR ---
PT LEFT BUILDING AT APPROX 1620 VIA EMS. NO S/S OF ACUTE DISTRESS. CL IN PLACE.
[2018-08-05 17:24] LABS: APPEARANCE CLEAR (CLEAR); BILIRUBIN NEGATIVE (NEGATIVE); COLOR STRAW (YELLOW); GLUCOSE NEGATIVE (NEGATIVE); KETONE NEGATIVE (NEGATIVE); NITRITE NEGATIVE (NEGATIVE); PROTEIN 1+ mg/dL (NEGATIVE); UROBILINOGEN NORMAL (NORMAL); WHITE CELLS - URINE NSEEN /hpf (0-5)
--- NOTE | 2018-08-05 19:11 | NUR ---
PT SITTING UP WATCHING TV. NO S/S OF ACUTE DISTRESS. CL IN PLACE.
--- NOTE | 2018-08-05 19:25 | NUR ---
RECEIVED PT CARE, SHIFT ASSESSMENT COMPLETED (1936) PT AAOX4 - DENIES PAIN OR NEEDS AT THIS TIME, WILL CONTINUE TO MONITOR
[2018-08-05 19:47] LABS: ANION GAP 17.5 mmol/L (8-16); CALCIUM 7.8 mg/dL (8.5-10.1); CARBON DIOXIDE 17.7 mmol/L (21.0-32.0); CREATININE - SERUM 2.8 mg/dL (0.6-1.3); POTASSIUM - SERUM 5.2 mmol/L (3.5-5.1)
--- NOTE | 2018-08-05 21:38 | NUR ---
HS SLEEP MEDS GIVEN PT DENIES NEEDS - VSS WILL CONTINUE TO MONITOR
--- NOTE | 2018-08-05 23:10 | NUR ---
REASSESSMENT COMPLETED SEE FLOWSHEET.
[2018-08-06] VITALS (19 sets, daily range): BP systolic 77–143; BP diastolic 59–83
--- NOTE | 2018-08-06 01:59 | NUR ---
PT RESTING COMFORTABLY, RISE AND FALL OF CHEST NOTED. VSS - NO APPARENT DISTRESS. CPOC
--- NOTE | 2018-08-06 03:00 | NUR ---
REASSESSMENT COMPLETED SEE FLOWSHEET
[2018-08-06 04:04] LABS: ANION GAP 15.2 mmol/L (8-16); CARBON DIOXIDE 22.1 mmol/L (21.0-32.0); CREATININE - SERUM 2.4 mg/dL (0.6-1.3); POTASSIUM - SERUM 4.3 mmol/L (3.5-5.1)
[2018-08-06 04:08] LABS: BASOPHILS 0.2 % (0-2); EOSINOPHILS 2.2 % (0-7); HEMATOCRIT 32.3 % (42.0-54.0); HEMOGLOBIN 10.4 g/dL (13.5-17.5); MCH 31.3 pg (26.0-34.0); MCHC 32.2 g/dL (31.0-37.0); MCV 97.3 fL (80.0-100.0); MEAN PLATELET VOLUME 9.6 fL (7.4-10.4); MONOCYTES 12.7 % (2-11); NEUTROPHILS 72.9 % (40-80); PLATELET COUNT 222 10x3/uL (130-400); RBC 3.32 10x6/uL (4.20-6.10); RDW 15.8 % (11.5-14.5); WBC 5.9 10x3/uL (4.8-10.8)
--- NOTE | 2018-08-06 05:15 | NUR ---
BS 119 - NO INSULIN NEEDED AT THIS TIME
--- NOTE | 2018-08-06 07:30 | NUR ---
SHIFT REPORT RECEIVED. AA&OX4. REPORTS SLIGHT DISCOMFORT ON LEFT SIDE WHEN HE MOVES AROUND. HE IS ON 2L OF 02 VIA NC. LUNGS ARE CLEAR ON RUL, RML AND JUDY. EXPIRATORY WHEEZE NOTED ON RLL AND LLL. BS ARE HYPOACTIVE X 4 QUADRANTS. BRUISING NONTED ON LLQ. WEARS GLASSES. HAS R AC 20G PIV WITH BICARB INFUSING AT 20ML/HR. HAS R-FOREARM SL. MUNOZ IN PLACE WITH LIGHT YELLOW URINE NOTED. SHIFT ASSESSMENT COMPLETED. SAFETY MEASURES IN PLACE.VSS. WILL CONTINUE TO MONITOR.
--- NOTE | 2018-08-06 09:00 | NUR ---
SITTING ON SIDE OF BED FOR BREAKFAST. ATE ABOUT 90% OF MEAL. DENIES FURTHER NEEDS AT THIS TIME. WILL CONTINUE TO MONITOR.
--- NOTE | 2018-08-06 12:04 | NUR ---
ASSISTED PT TO SIDE OF BED. MEAL TRAY DELIVERED AND SET UP. WILL CONTINUE TO MONITOR.
--- NOTE | 2018-08-06 13:39 | NUR ---
RESTING COMFORTABLY IN BED WATCHING TV. BICARB DRIP DC'D PER ORDERS.
--- NOTE | 2018-08-06 16:25 | NUR ---
BED BATH GIVEN AT THIS TIME. COMPLETE LINEN CHANGE PROVIDED. ORAL CARE PRODUCTS PROVIDED. MINIMAL ASSISTANCE DURING BATH. MUNOZ CARE PROVIDED. PT RESTNG COMFORTABLY. WILL CONTINUE TO MONITOR.
--- NOTE | 2018-08-06 16:56 | NUR ---
BLOOD GLUCOSE 234. 4 UNITS OF HUMALOG GIVEN PER SLIDING SCALE.
--- NOTE | 2018-08-06 19:05 | NUR ---
RECEIVED PATIENT CARE - SHIFT ASSESSMENT COMPLETED SEE FLOWSHEET. PT AAOX4 - DENIES NEEDS AT THIS TIME. WILL CONTINUE TO MONITOR
--- NOTE | 2018-08-06 21:05 | NUR ---
PT RESTING COMFORTABLY, DENIES NEEDS
--- NOTE | 2018-08-06 23:11 | NUR ---
2 UNITS HUMALOG GIVEN FOR BLOODSUGAR 119 - SEE EMAR FOR ADMINISTRATION
[2018-08-07] VITALS (11 sets, daily range): BP systolic 116–154; BP diastolic 65–91
--- NOTE | 2018-08-07 01:35 | NUR ---
PT RESTING COMFORTABLY NO SIGNS OF DISTRESS, NO ACUTE CHANGES CPOC
--- NOTE | 2018-08-07 03:51 | NUR ---
PATIENT RESTING COMFORTABLY - VSS, NO ACUTE DISTRESS WILL CONTINUE TO MONITOR
[2018-08-07 03:58] LABS: BASOPHILS 0.2 % (0-2); EOSINOPHILS 1.3 % (0-7); HEMATOCRIT 32.4 % (42.0-54.0); HEMOGLOBIN 10.5 g/dL (13.5-17.5); IMMATURE GRANULOCYTES 0.2 % (0-5); LYMPHOCYTES 7.3 % (15-50); MCH 31.3 pg (26.0-34.0); MCHC 32.4 g/dL (31.0-37.0); MCV 96.4 fL (80.0-100.0); MEAN PLATELET VOLUME 9.5 fL (7.4-10.4); PLATELET COUNT 234 10x3/uL (130-400); RBC 3.36 10x6/uL (4.20-6.10); RDW 15.4 % (11.5-14.5); WBC 6.3 10x3/uL (4.8-10.8)
[2018-08-07 04:05] LABS: ANION GAP 15.3 mmol/L (8-16); CALCIUM 7.8 mg/dL (8.5-10.1); POTASSIUM - SERUM 4.3 mmol/L (3.5-5.1)
[2018-08-07 04:15] LABS: CREATININE - SERUM 1.6 mg/dL (0.6-1.3)
--- NOTE | 2018-08-07 07:00 | NUR ---
SHIFT REPORT RECEIVED. AA&OX4. ON ROOM AIR. VSS. NO FEVER. LUNGS CLEAR. BS ACTIVE X 4Q. MUNOZ IN PLACE WITH CLEAR YELLOW URINE NOTED. REPORTS PAIN ON L SIDE WHEN MOVING AROUND IN BED. OTHERWISE HE DOESN'T HAVE PAIN. SHIFT ASSESSMENT COMPLETED. SAFETY MEASURES IN PLACE. WILL CONTINUE TO MONITOR.
--- NOTE | 2018-08-07 09:15 | NUR ---
NUTRITION F/U PT WATCHING TV, REPORTS GOOD INTAKE RENAL BREAKFAST. WILL CONTINUE TO PROVIDE CURRENT DIET, MONITOR INTAKE. RD FOLLOWING
--- NOTE | 2018-08-07 11:19 | NUR ---
BLOOD GLUCOSE 307. 8 UNITS OF HUMALOG GIVEN PER SLIDING SCALE.
--- NOTE | 2018-08-07 12:19 | NUR ---
PT SAT ON SIDE OF BED TO EAT LUNCH. RESTING IN BED AT THIS TIME. FAMILY AT BEDSIDE. NO ACUTE CHANGES NOTED. WILL CONTINUE TO MONITOR.
--- NOTE | 2018-08-07 15:26 | NUR ---
RESTING COMFORTABLY. DAUGHTERS WENT HOME AT THIS TIME. PT DENIES OTHER NEEDS. WILL CONTINUE TO MONITOR.
--- NOTE | 2018-08-07 16:40 | NUR ---
BLOOD GLUCOSE 204 AT THIS TIME. 4 UNITS OF HUMALOG GIVEN PER SLIDING SCALE.
--- NOTE | 2018-08-07 17:00 | NUR ---
UP IN CHAIR WITH ASSIST. COMPLETE LINEN CHANGE PROVIDED. VSS. WILL CONTINUE TO MONITOR.
--- NOTE | 2018-08-07 18:47 | NUR ---
PT ASSISTED BACK TO BED AT THIS TIME. SAT IN CHAIR SINCE 1700. DENIES FURTHER NEEDS AT THIS TIME. WILL CONTINUE TO MONITOR.
--- NOTE | 2018-08-07 19:15 | NUR ---
REC'D TO CARE, RADIOLOGY RN PER FLOWSHEET. PT ALERT AND ORIENTED. VSS. DENIES NEEDS.
--- NOTE | 2018-08-07 21:00 | NUR ---
NO VISITORS, PT WATCHING TV. PT WITH TRANSFER ORDERS, AWAITING BED.
--- NOTE | 2018-08-07 21:45 | NUR ---
UP TO BSC WITH ASSIST. + FLATUS AND FORMED BM. CHRISTINA-CARE DONE, MUNOZ-CARE DONE. PT ASSISTED BACK TO BED. PT SLOW MOVING AROUND, C/O "SORE L SIDE". DENIES NEEDS. ALARMS ON AND C/L IN REACH.
[2018-08-08] VITALS (10 sets, daily range): BP systolic 100–159; BP diastolic 7–116
--- NOTE | 2018-08-08 01:00 | NUR ---
RESTING WITH EYES CLOSED, VSS.
--- NOTE | 2018-08-08 03:00 | NUR ---
RESTING QUIETLY, TURNS SELF IN BED. VSS.
[2018-08-08 04:02] LABS: BASOPHILS 0.2 % (0-2); EOSINOPHILS 1.4 % (0-7); HEMATOCRIT 32.9 % (42.0-54.0); HEMOGLOBIN 10.6 g/dL (13.5-17.5); IMMATURE GRANULOCYTES 0.2 % (0-5); LYMPHOCYTES 9.4 % (15-50); MCH 31.3 pg (26.0-34.0); MCHC 32.2 g/dL (31.0-37.0); MCV 97.1 fL (80.0-100.0); MEAN PLATELET VOLUME 9.5 fL (7.4-10.4); MONOCYTES 9.8 % (2-11); PLATELET COUNT 245 10x3/uL (130-400); RBC 3.39 10x6/uL (4.20-6.10); RDW 15.2 % (11.5-14.5); WBC 6.6 10x3/uL (4.8-10.8)
[2018-08-08 04:19] LABS: ANION GAP 14.7 mmol/L (8-16); CALCIUM 7.6 mg/dL (8.5-10.1); CARBON DIOXIDE 23.3 mmol/L (21.0-32.0); CREATININE - SERUM 1.3 mg/dL (0.6-1.3)
--- NOTE | 2018-08-08 06:00 | NUR ---
PT AND I DISCUSSED THAT HE IS NOW READY FOR MUNOZ REMOVAL - MUNOZ D/C'D INTACT WITHOUT DIFFICULTY, CHRISTINA-CARE DONE. URINAL AT BS.
--- NOTE | 2018-08-08 07:34 | NUR ---
RESUMING PT CARE, PT LAYING IN BED ALERT, RESPIRATIONS EVEN AND UNLABORED. C/O OF LEFT GREAT TOE PAIN, STATES IS 9 ON PAIN SCALE AND BELEIVED HE INJURED DURING A FALL AT HOME. I SPOKE WITH BERTO GÓMEZ AND GOT NEW ORDER FOR TYLENOL 500 MG Q 6 HOURS PRN. CALL LIGHT IN REACH, WILL CONTINUE TO MONITOR AND FOLLOW PLAN OF CARE.
--- NOTE | 2018-08-08 09:48 | NUR ---
MUNOZ REMOVED THIS MORNING BY OUTSIDE PLANT TECHNICIAN, AT THIS TIME PT URINATED 250CC IN URINAL OF CLR YELLOW URINE. CALL LIGHT IN REACH, WILL CONTINUE TO MONITOR. L
--- NOTE | 2018-08-08 10:48 | NUR ---
PT REQUEST FOR A STRONGER PAIN MEDICATION FOR LEFT GREAT TOE AND LEFT RIB AREA PAIN, DR PALACIOS IS HERE TO SEE PT AND GAVE ME A ORDER FOR NORCO 5/325 Q 4 HOURS PRN. ORDER NOTED. CALL LIGHT IN REACH, WILL CONTINUE TO MONITOR.
--- NOTE | 2018-08-08 17:29 | NUR ---
PT C/O OF LEFT GREAT TOE PAIN INCREASING BUT PAIN MED HELPS SOME. I EDUCATED PT TO ASK FOR MEDICATION PRN FOR THE PAIN. CALL LIGHT IN REACH, WILL CONTINUE TO MONITOR.
--- NOTE | 2018-08-08 18:03 | MORECARE ---
CASE MANAGEMENT DISCHARGE SUMMARY PATIENT: JAKE WELLS UNIT: [id number] ADM DATE: 08/05/18 AGE: 82 : 34 SEX: M ROOM/BED: D.2310 AUTHOR: ANA SAMAYOA PHYSICIAN: REFERRING PHYSICIAN: ZAY ARMENTA DO DATE OF SERVICE: 08/08/18 Discharge Plan Patient Name: JAKE WELLS [facility] [facility] 1935 Planned Disposition: Anticipated Discharge Date: Discharge Date: Expected LOS: Initial Reviewer: [email or web address] Initial Review Date: 08/08/2018 Generated: 08/08/18 7:03 pm Patient Name: JAKE WELLS Page [id number] at 1803 All edits/amendments must be made on the electronic document DICTATION DATE: 08/08/181801 LIVESTOCK PRODUCER: FLOR 08/08/181801 RPT#: [id number] DC DATE: STATUS: ADM IN [facility] [address] [place] [address] END OF REPORT
--- NOTE | 2018-08-08 18:11 | MORECARE ---
CASE MANAGEMENT DISCHARGE SUMMARY PATIENT: JAKE WELLS UNIT: [id number] ADM DATE: 08/05/18 AGE: 82 : 34 SEX: M ROOM/BED: D.2310 AUTHOR: ANA SAMAYOA PHYSICIAN: REFERRING PHYSICIAN: ZAY ARMENTA DO DATE OF SERVICE: 08/08/18 Discharge Plan Patient Name: JAKE WELLS [facility] : 1935 Planned Disposition: Anticipated Discharge Date: Discharge Date: Expected LOS: Initial Reviewer: [email or web address] Initial Review Date: 08/08/2018 Generated: 08/08/18 7:11 pm DCPIA - Discharge Planning Initial Assessment Updated by [email or web address]: Dilcia Gillette on 08/08/18 6:05 pm * Is the patient Alert and Oriented? Yes * How many steps to enter\exit or inside your home? ramp * PCP Soha Borwn, ANP * Pharmacy [facility] * Preadmission Environment Home Alone * ADLs Independent * Equipment Walker * Other Equipment cane * List name and contact numbers for known caregivers / representatives who currently or will assist patient after discharge: Jennifer Moreno - daughter - [phone] Nessa - daughter -[phone] * Verbal permission to speak to the caregivers and representatives has been obtained from the patient. N/A * Community resources currently utilized None * Please name any agencies selected above. Has had [facility] in the past * Additional services required to return to the preadmission environment? No * Can the patient safely return to the preadmission environment? Yes * Has this patient been hospitalized within the prior 30 days at any hospital? No Last DP export: 08/08/18 5:03 p Patient Name: JAKE WELLS Page [id number] at 1811 All edits/amendments must be made on the electronic document DICTATION DATE: 08/08/181810 CUSTOMER STRATEGY MANAGER: FLOR 08/08/181810 RPT#: [id number] DC DATE: STATUS: ADM IN [facility] [address] [place] [address] END OF REPORT
--- NOTE | 2018-08-08 18:19 | MORECARE ---
CASE MANAGEMENT DISCHARGE SUMMARY PATIENT: JAKE WELLS UNIT: [id number] ADM DATE: 08/05/18 AGE: 82 : 34 SEX: M ROOM/BED: D.2310 AUTHOR: DANITA,DOC PHYSICIAN: REFERRING PHYSICIAN: ZAY ARMENTA DO DATE OF SERVICE: 08/08/18 Discharge Plan Patient Name: JAKE WELLS [facility] [facility] 1935 Planned Disposition: Anticipated Discharge Date: Discharge Date: Expected LOS: Initial Reviewer: [email or web address] Initial Review Date: 08/08/2018 Generated: 08/08/18 7:19 pm Comments DCP- Discharge Planning Updated by [email or web address]: Dilcia Gillette on 08/08/18 5:[address] Patient Name: JAKE Pitt [place] Admission Status: ER Accout number: [id number] Admission Date: 08-05-2018 : 1935 Admission Diagnosis: Attending: ZAY ARMENTA Current LOS: 3 Anticipated DC Date: Planned Disposition: Primary Insurance: MEDICARE A & B Discharge Planning Comments: CM met with patient at bedside. Patient states he lives alone. Patient states that he has a walker, and cane. He states he has had [facility] in the past. Patient denies any discharge needs. CM will continue to follow and assist as needed with discharge planning / needs. Senior Patrol Agent: Dilcia Gillette DCPIA - Discharge Planning Initial Assessment Updated by [email or web address]: Dilcia Gillette on 08/08/18 6:05 pm * Is the patient Alert and Oriented? Yes * How many steps to enter\exit or inside your home? ramp * PCP ADDY Hale * Pharmacy [facility] * Preadmission Environment Home Alone * ADLs Independent * Equipment Walker * Other Equipment cane * List name and contact numbers for known caregivers / representatives who currently or will assist patient after discharge: Jennifer Moreno - daughter - [phone] Nessa Aragon daughter -[phone] * Verbal permission to speak to the caregivers and representatives has been obtained from the patient. N/A * Community resources currently utilized None * Please name any agencies selected above. Has had [facility] in the past * Additional services required to return to the preadmission environment? No * Can the patient safely return to the preadmission environment? Yes * Has this patient been hospitalized within the prior 30 days at any hospital? No Last DP export: 08/08/18 5:11 p Patient Name: JAKE WELLS Page [id number] at 1819 All edits/amendments must be made on the electronic document DICTATION DATE: 08/08/181817 SALON MANAGER: FLOR 08/08/181817 RPT#: [id number] DC DATE: STATUS: ADM IN [facility] [address] [place] [address] END OF REPORT
--- NOTE | 2018-08-08 19:15 | NUR ---
REC'D TO CARE, NYLON WINDER PER FLOWSHEET. PT AWAKE AND ORIENTED, VSS. PT WITH TRANSFER ORDERS AWAITING BED. URINAL AT BS. ALARMS ON AND C/L IN REACH.
--- NOTE | 2018-08-08 20:26 | NUR ---
ADMIN PO MEDS PER MD ORDER AND PRN NORCO - SEE EMAR. PT SITTING UP AT BS. DENIES OTHER NEEDS.
--- NOTE | 2018-08-08 22:10 | NUR ---
pt back to bed, had nausea and small amt emesis. Alice Woo paged and notified` new order rec'd.
--- NOTE | 2018-08-08 23:30 | NUR ---
RESTING QUIETLY, DENIES ANY NAUSEA OR NEEDS. C/L IN REACH.
--- NOTE | 2018-08-09 00:31 | NUR ---
PT RESTING QUIETLY, VSS. NO SIGN OF DISTRESS.
[2018-08-09 03:00] VITALS: BP 120/69
--- NOTE | 2018-08-09 03:06 | NUR ---
VSS. PT DENIES NEEDS, BACK TO REST EASILY.
[2018-08-09 03:50] LABS: BASOPHILS 0.2 % (0-2); HEMATOCRIT 32.6 % (42.0-54.0); HEMOGLOBIN 10.4 g/dL (13.5-17.5); IMMATURE GRANULOCYTES 0.3 % (0-5); LYMPHOCYTES 9.2 % (15-50); MCHC 31.9 g/dL (31.0-37.0); MCV 97.3 fL (80.0-100.0); MEAN PLATELET VOLUME 9.3 fL (7.4-10.4); MONOCYTES 11.9 % (2-11); NEUTROPHILS 77.4 % (40-80); PLATELET COUNT 242 10x3/uL (130-400); RBC 3.35 10x6/uL (4.20-6.10); RDW 14.6 % (11.5-14.5); WBC 5.9 10x3/uL (4.8-10.8)
[2018-08-09 04:07] LABS: ANION GAP 15.7 mmol/L (8-16); CALCIUM 7.4 mg/dL (8.5-10.1); CARBON DIOXIDE 23.1 mmol/L (21.0-32.0); CREATININE - SERUM 1.3 mg/dL (0.6-1.3)
[2018-08-09 04:20] LABS: POTASSIUM - SERUM 4.8 mmol/L (3.5-5.1)
[2018-08-09 07:00] VITALS: BP 133/66
--- NOTE | 2018-08-09 07:00 | NUR ---
REPORT RECIEVED, SHIFT ASSESSMENT COMPLETE, PT IS ALERT AND ORIENTED, ON RA WITH 97% O2 SAT. ALL PPP, VSS, CALL LIGHT IN REACH
[2018-08-09 08:00] VITALS: BP 143/87
[2018-08-09 09:00] VITALS: BP 115/73
--- NOTE | 2018-08-09 09:00 | NUR ---
PT UP IN CHAIR, DENIES ANY WANTS OR NEEDS, WILL CON'T TO MONITOR
--- NOTE | 2018-08-09 09:10 | NUR ---
NUTRITION F/U PT UP TO CHAIR. TOLERATING RENAL DIET WITH ~ 50% INTAKE BREAKFAST. PT STATES HE DOESN'T HAVE MUCH APPETITE. WILL CONTINUE TO PROVIDE DIET, MONITOR INTAKE. FD FOLLOWING
[2018-08-09 10:00] VITALS: BP 116/62
[2018-08-09 11:00] VITALS: BP 129/71
--- NOTE | 2018-08-09 12:00 | NUR ---
DR. PALACIOS AT BEDSIDE, D/C ORDERS RECIEVED,
--- NOTE | 2018-08-09 13:06 | NUR ---
UPDATE GIVEN TO FAMILY OVER PHONE,
--- NOTE | 2018-08-09 15:15 | NUR ---
FAMILY AT BEDSIDE, PT DC'D AT THIS TIME, VIA WHEELCHAIR
--- NOTE | 2018-08-09 15:27 | MORECARE ---
CASE MANAGEMENT DISCHARGE SUMMARY PATIENT: JAKE WELLS UNIT: [id number] ADM DATE: 08/05/18 AGE: 82 : 34 SEX: M ROOM/BED: D.2310 AUTHOR: DANITA,DOC PHYSICIAN: REFERRING PHYSICIAN: ZAY ARMENTA DO DATE OF SERVICE: 08/09/18 Discharge Plan Patient Name: JAKE WELLS Facility: [facility]:[place] : 1935 Planned Disposition: Anticipated Discharge Date: Discharge Date: Expected LOS: Initial Reviewer: [email or web address] Initial Review Date: 08/08/2018 Generated: 08/09/18 4:27 pm Comments DCP- Discharge Planning Updated by [email or web address]: Dilcia Gillette on 08/09/18 2:[address] Patient Name: JAKE WELLS Encounter No: [id number] : 1935 Primary Insurance: MEDICARE A & B Anticipated DC Date: Planned Disposition: External Planned Provider: : IMM EXPLAINED AND SERVED 08/09/18 @1245 DENIES ANY DISCHARGE NEEDS DCP follow-up note: Patient and family in agreement with discharge plan. No changes to plan. Case management will follow and assist as needed. Dilcia Gillette DCP- Discharge Planning Updated by [email or web address]: Dilcia Gillette on 08/08/18 5:[address] Patient Name: JAKE Pitt HORMIGUEROS Admission Status: ER Accout number: [id number] Admission Date: 08-05-2018 : 1935 Admission Diagnosis: Attending: ZAY ARMENTA Current LOS: 3 Anticipated DC Date: Planned Disposition: Primary Insurance: MEDICARE A & B Discharge Planning Comments: CM met with patient at bedside. Patient states he lives alone. Patient states that he has a walker, and cane. He states he has had [facility] in the past. Patient denies any discharge needs. CM will continue to follow and assist as needed with discharge planning / needs. Coal And Ash Supervisor: Dilcia Gillette DCPIA - Discharge Planning Initial Assessment Updated by [email or web address]: Dilcia Gillette on 08/08/18 6:05 pm * Is the patient Alert and Oriented? Yes * How many steps to enter\exit or inside your home? ramp * PCP Soha Brown, ANP * Pharmacy [facility] * Preadmission Environment Home Alone * ADLs Independent * Equipment Walker * Other Equipment cane * List name and contact numbers for known caregivers / representatives who currently or will assist patient after discharge: Jennifer Moreno - daughter - [phone] Nessa Aragon daughter -[phone] * Verbal permission to speak to the caregivers and representatives has been obtained from the patient. N/A * Community resources currently utilized None * Please name any agencies selected above. Has had [facility] in the past * Additional services required to return to the preadmission environment? No * Can the patient safely return to the preadmission environment? Yes * Has this patient been hospitalized within the prior 30 days at any hospital? No Coverage Notice Reviewer: [email or web address] Margo Gillette Notice Issued Date-Time: 08/09/2018 12:45 Notice Type: IM Discharge Notice Notice Delivered To: Patient Relationship to Patient: Self Chip Drier Name: Delivery Method: HAND - Hand Delivered Karen Days: Prior Verbal Notification: Recipient Understood Notice: Yes Recipient Signature: Yes Med Rec Note Co-signed by Attending: Coverage Notice Comment: Last DP export: 08/08/18 5:19 p Patient Name: JAKE WELLS Page 23461 at 1527 All edits/amendments must be made on the electronic document DICTATION DATE: 08/09/181526 NEON SIGN INSTALLER: FLOR 08/09/18 1527 RPT#: [id number] DC DATE: STATUS: ADM IN [facility] [address] [place] [address] END OF REPORT
--- NOTE | 2018-08-10 10:08 | MORECARE ---
CASE MANAGEMENT DISCHARGE SUMMARY PATIENT: JAKE WELLS UNIT: [id number] ADM DATE: 08/05/18 AGE: 82 : 34 SEX: M ROOM/BED: D.2310 AUTHOR: DANITA,DOC PHYSICIAN: REFERRING PHYSICIAN: ZAY ARMENTA DO DATE OF SERVICE: 08/10/18 Discharge Plan Patient Name: JAKE WELLS Facility: [facility]:[place] : 1935 Planned Disposition: Anticipated Discharge Date: Discharge Date: 08/09/2018 Expected LOS: Initial Reviewer: [email or web address] Initial Review Date: 08/08/2018 Generated: 08/10/18 11:08 am Comments DCP- Discharge Planning Updated by [email or web address]: Dilcia Gillette on 08/09/18 2:[address] Patient Name: JAKE WELLS Encounter No: [id number] : 1935 Primary Insurance: MEDICARE A & B Anticipated DC Date: Planned Disposition: External Planned Provider: : IMM EXPLAINED AND SERVED 08/09/18 @1245 DENIES ANY DISCHARGE NEEDS DCP follow-up note: Patient and family in agreement with discharge plan. No changes to plan. Case management will follow and assist as needed. Dilcia Gillette DCP- Discharge Planning Updated by [email or web address]: Dilcia Gillette on 08/08/18 5:[address] Patient Name: JAKE Pitt [place] Admission Status: ER Accout number: [id number] Admission Date: 08-05-2018 : 1935 Admission Diagnosis: Attending: ZAY ARMENTA Current LOS: 3 Anticipated DC Date: Planned Disposition: Primary Insurance: MEDICARE A & B Discharge Planning Comments: CM met with patient at bedside. Patient states he lives alone. Patient states that he has a walker, and cane. He states he has had [facility] in the past. Patient denies any discharge needs. CM will continue to follow and assist as needed with discharge planning / needs. Steward/Stewardess Night: Dilcia Gillette DCPIA - Discharge Planning Initial Assessment Updated by [email or web address]: Dilcia Gillette on 08/08/18 6:05 pm * Is the patient Alert and Oriented? Yes * How many steps to enter\exit or inside your home? ramp * PCP Soha Brown, ANP * Pharmacy [facility] * Preadmission Environment Home Alone * ADLs Independent * Equipment Walker * Other Equipment cane * List name and contact numbers for known caregivers / representatives who currently or will assist patient after discharge: Jennifer Moreno - daughter - [phone] Nessa Aragon daughter -[phone] * Verbal permission to speak to the caregivers and representatives has been obtained from the patient. N/A * Community resources currently utilized None * Please name any agencies selected above. Has had [facility] in the past * Additional services required to return to the preadmission environment? No * Can the patient safely return to the preadmission environment? Yes * Has this patient been hospitalized within the prior 30 days at any hospital? No Coverage Notice Reviewer: [email or web address] Margo Gillette Notice Issued Date-Time: 08/09/2018 12:45 Notice Type: IM Discharge Notice Notice Delivered To: Patient Relationship to Patient: Self Labor Economist Name: Delivery Method: HAND - Hand Delivered Karen Days: Prior Verbal Notification: Recipient Understood Notice: Yes Recipient Signature: Yes Med Rec Note Co-signed by Attending: Coverage Notice Comment: Last DP export: 08/09/18 2:27 p Patient Name: JAKE WELLS Page 17889 at 1008 All edits/amendments must be made on the electronic document DICTATION DATE: 08/10/18 1008 A AND P MECHANIC: FLOR 08/10/18 1008 RPT#: [id number] DC DATE:08/09/18 STATUS: DIS IN [facility] [address] [place] [address] END OF REPORT
== END 2018-08-09 15:33 | disposition home or self-care (01) | DRG 683 ==
LOC: D.ER 00:19 → D.ICU 00:53 → D.EDHOLD 00:53 → D.M2 01:24 → D.EDHOLD 03:18 → D.ICU 03:34
PROVIDERS: Family Medicine; Internal Medicine Nephrology; ADMIT Family Medicine
DX: N17.9 Acute kidney failure, unspecified (principal); E87.2 Acidosis; J90 Pleural effusion, not elsewhere classified; E11.22 Type 2 diabetes mellitus with diabetic chronic kidney disease; I12.9 Hypertensive chronic kidney disease with stage 1 through stage 4 chronic kidney disease, or unspecified chronic kidney disease; N18.9 Chronic kidney disease, unspecified; I25.10 Atherosclerotic heart disease of native coronary artery without angina pectoris; Z95.1 Presence of aortocoronary bypass graft; Z95.5 Presence of coronary angioplasty implant and graft; E87.5 Hyperkalemia; D63.1 Anemia in chronic kidney disease; W19.XXXA Unspecified fall, initial encounter; M19.90 Unspecified osteoarthritis, unspecified site; R79.89 Other specified abnormal findings of blood chemistry

== ENCOUNTER → 2018-11-07 11:46 | Outpatient (CLI) | payer MEDICARE, OTHER ==
[~2018-11-07 11:46] MED LIST changes: +CARAFATE1 G PO
--- NOTE | 2018-11-09 13:47 | EC ---
PATIENT:JAKE WELLS DATE OF SERVICE: 11/07/18 SEX: M MEDICAL RECORD: [id number] DATE OF : 33 LOCATION:[facility] AGE OF PATIENT: 83 ADMISSION DATE: 11/07/18 REFERRING PHYSICIAN: INTERPRETING PHYSICIAN: BRIANNA WISEMAN MD ECHOCARDIOGRAM REPORT ECHO CHARGES 4 ECHO COMPLETE Date: 11/07/18 CLINICAL DIAGNOSIS: MURMUR/CARDIOMYOPATHY H/O HTN/CAD ECHOCARDIOGRAPHIC MEASUREMENTS (adult normal given) AC root (d.<3.7cm) 2.7 cm LV Septum d (<1.2 cm> 1.3 cm Valve Excursion 1.8 cm LV Septum (systole) 1.9 cm Left Atria (s.<4.0cm> 5.4 cm LVPW d(<1.2cm) 1.2 cm RV (d.<2.3cm) 3.5 cm LVPW (sytole) 1.6 cm LV diastole(<5.6CM) 6.9 cm MV E-F(>70mm/sec) cm LV systole 5.0 cm LVOT Diameter 1.9 cm MV exc.(>10mm) cm Est.ejection fraction (50-75%) % DOPPLER: LVIT cm/sec A 52.0 cm/sec E 137 cm/sec LA cm/sec RVSP 64.0 mmHg LVOT 79.0 cm/sec AOP1/2T m/s Asc. Ao 147 cm/sec RVOT 48.0 cm/sec RA cm/sec PA 100 cm/sec AV Gradient Peak 8.7 mmHg AV Mean 3.7 mmHg AV Area 2.1 cm MV Gradient Peak 8.1 mmHg MV Mean 2.5 mmHg MV Area cm COMMENTS: OP - HC Refrigeration Brazer/Solderer: 1 JAMSHID CHRISTIANSONOE Gallery Intern: 3 Dr. Menard TAPE# PACS Pericardial Effusion N DATE OF SERVICE: Adequate 2-D, color-flow and spectral Doppler, and M-Mode. No LVH is present. LV internal medicine normal. 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 Left atrium dilated at 5.4 cm. Mitral valve shows no prolapse. Moderate MR. Right-sided chamber is grossly normal. Moderate TR. ECHOCARDIOGRAM REPORT [id number] JAKE WELLS TRANSINT:[id number] Voice Confirmation ID: [id number] DOCUMENT ID: [id number] BRIANNA WISEMAN MD at 1347 CC: [id number] DICTATION DATE: 11/08/18 1302 MUD JACK NOZZLE WORKER: 11/08/18 1542 DEP CLI 11/07/18 [place] [id number] [place] [id number]
== END | disposition home or self-care (01) ==
LOC: D.HCCARDIO 11:46
DX: I42.9 Cardiomyopathy, unspecified (principal)

== ENCOUNTER 2019-09-05 13:19 | Emergency (ER) | payer MEDICARE, OTHER ==
[~2019-09-05] VITALS: Ht 167.6 cm; Wt 90.9 kg
[2019-09-05 13:19] VITALS: Ht 167.6 cm; Wt 90.9 kg
== END 2019-09-05 18:47 ==
LOC: D.ER 13:31
DX: K92.2 Gastrointestinal hemorrhage, unspecified (principal); I46.9 Cardiac arrest, cause unspecified; E11.9 Type 2 diabetes mellitus without complications; Z95.0 Presence of cardiac pacemaker; I10 Essential (primary) hypertension; Z79.84 Long term (current) use of oral hypoglycemic drugs